=== PATIENT | male | born 1965 | race Caucasian/White ===

== ENCOUNTER 2018-04-30 09:28 | Inpatient (IN) ==
[2018-04-30] MEDS ORDERED: NS 1,000 ML IV ONE ×2 (09:40→10:47)
[2018-04-30] MEDS: SALINE FLUSH 10ml SYRINGE IVF PRN (10:00)
[2018-04-30] MEDS: CLINDAMYCIN PB 600 MG/50 ML BAG IV SCH (10:04)
--- NOTE | 2018-04-30 10:33 | XRay Report ---
Indication: Foot infx PROCEDURE: XR foot LT min 3V: Encounter: Initial Comparison: None Findings: There is no acute fracture, dislocation or malalignment identified. Midfoot soft tissue swelling. Mild midfoot degenerative change and evidence of old trauma or infection in the metatarsal bases. Impression: No acute osseous abnormality. .
--- NOTE | 2018-04-30 11:08 | Emergency Department Report ---
General Adult HPI - General Chief complaint: Wound/Laceration Stated complaint: lac between toe, infected Time Seen by Provider: 04/30/18 09:37 Source: patient Mode of arrival: ambulatory Limitations: no limitations - History of Present Illness HPI narrative: Pt presents with a laceration/wound between the last 2 toes of his left foot. Pt thinks it may have been there about 5 days. He reports he ripped what he thought was a callous off the bottom of his foot near the same area which has now turned to an ulceration. He does have pain depending on which way he turns or if he bumps his foot. He has had sweats but unknown fever. Onset (ago): day(s) Location: lower extremity Treatments prior to arrival: none - Related Data Home Medications Medication Instructions Recorded Confirmed Aspirin [Adult Aspirin Regimen] 81 mg PO DAILY 04/30/18 04/30/18 Cholecalciferol (Vitamin D3) 1 tab PO DAILY 04/30/18 04/30/18 [Vitamin D3] Allergies Allergy/AdvReac Type Severity Reaction Status Date / Time No Known Allergies Allergy Verified 04/30/18 09:47 Review of Systems All systems: reviewed and negative except as stated Constitutional: Reports: as per HPI Musculoskeletal: Reports: as per HPI Integumentary: Reports: as per HPI [facility] Patient Stated Medical History Migraine Yes Macular Degeneration Yes: "THE START OF" Hypertension Yes Diabetes Mellitus Type 2 Yes Other GI Yes: ALTERNATING CONSTIPATION AND DIARRHEA--- SUSPECTS IBS BUT NO DX Osteoarthritis Yes MRSA Yes - Social History Smoking status: Never smoker Physical Exam - Limitations Limitations: no limitations - General General appearance: alert, in no apparent distress - Normal Exams: Head:: Normocephalic without trauma Eyes:: Pupils are PERRLA w/ EOMI Chest/Respirations:: Clear all mustafa, with good airflow, and symmetry bilaterally Cardiovascular:: Regular rate and rhythm, without murmur or gallop, Pulses 2+ all extremities, capillary refill, <2 seconds all extremities Abdomen:: Bowel sounds positive, soft, non-tender, non-distended Neurological:: Patient is alert, and oriented, cranial nerves, motor/sensory/ cerebellar, exams w/o gross deficits, to observation Psychiatric:: Patient exhibits, appropriate attention, emotion and affect - Expanded Lower Extremity Exam left Foot/toe exam: Present: full ROM, tenderness, swelling, erythema (ulceration to bottom of foot) - Skin Skin exam: Present: warm, dry Course Vital Signs Temperature 98.3 F 04/30/18 09:32 Pulse Rate 106 H 04/30/18 09:32 Respiratory Rate 22 04/30/18 09:32 Blood Pressure 177/86 H 04/30/18 09:32 Pulse Oximetry 97 04/30/18 09:32 Temperature 98.3 F 04/30/18 09:32 Pulse Rate 106 H 04/30/18 09:32 Respiratory Rate 22 04/30/18 09:32 Blood Pressure 177/86 H 04/30/18 09:32 Pulse Oximetry 97 04/30/18 09:32 Medical Decision Making - MDM Narrative Medical decision making narrative: With further discussion pt reveals he has not had any medications for about a year and a half. He does not have a PCP. Pt has received Clindamycin. CT foot performed for osteomyelitis. Hospitalist notified and will admit. Pt informed of plan. - Differential Diagnosis cellulitis, diabetic neuropathy, hyperglycemia, ulcerated wound - Lab Data Lab results reviewed: Yes: I reviewed the patient's lab results. Result diagrams: 04/30/18 10:05 04/30/18 10:05 Lab Results 04/30/18 04/30/18 04/30/18 Range/Units 10:05 10:05 11:00 WBC 16.8 H (4.5-11.0) T/MM3 RBC 4.84 (4.50-5.90) M/MM3 Hgb 13.2 L (13.5-17.5) GM/DL Hct 37.9 L (41-53) % MCV 78.3 L (80-100) UM3 MCH 27.3 (26-34) UUG MCHC 34.8 (31-37) GM/DL RDW Std Deviation 35.7 L (36.9-50.2) FL Plt Count 247 (130-400) T/MM3 MPV 9.4 (9.4-12.4) UM3 Immature Gran % (Auto) Not performed Neut % (Auto) Not performed Lymph % (Auto) Not performed [place] % (Auto) Not performed Eos % (Auto) Not performed Baso % (Auto) Not performed Neut # (Auto) Not performed Lymph # (Auto) Not performed [place] # (Auto) Not performed Eos # (Auto) Not performed Baso # (Auto) Not performed Abs Immat Gran (auto) Not performed Neutrophils % (Manual) 77.0 H (33-66) % Band Neutrophils % 2.0 (0-6) % Lymphocytes % (Manual) 15.0 L (23-45) % Monocytes % (Manual) 6.0 (0-9.0) % Neutrophils # (Manual) 12.9 H (1.8-7.7) T/MM3 Band Neutrophils # 0.3 T/MM3 Lymphocytes # (Manual) 2.5 (1-4.8) T/MM3 Monocytes # (Manual) 1.0 H (0-0.8) T/MM3 RBC Morph Comment Normal Turbidity < 20 (0-20) Sodium 131 L (136-146) MEQ/L Potassium 4.0 (3.6-5) MEQ/L Chloride 92 L (98-107) MEQ/L Carbon Dioxide 26 (22-30) MEQ/L Anion Gap 13 (5-15) meq/L BUN 12.0 (9-20) MG/DL Creatinine 0.7 L (0.8-1.5) mg/dL GFR Calculation 118 BUN/Creatinine Ratio 17 (6-26) RATIO Glucose 380 H (75-110) MG/DL Glucometer 361 (65-110) mg/dL Calculated Osmolality 269 (261-280) MOSM/KG Calcium 8.8 (8.4-10.2) MG/DL Icterus Index < 2 (0-7) C-Reactive Protein 147.2 H (0-9) mg/L Specimen Hemolysis < 15 (0-25) Disposition Clinical Impression: Hyperglycemia Cellulitis Qualifiers: Site of cellulitis: extremity Site of cellulitis of extremity: lower extremity Laterality: left Qualified Code(s): L03.116 - Cellulitis of left lower limb [place] [facility] [place] Condition: Stable Prescriptions: No Action Aspirin [Adult Aspirin Regimen] 81 mg PO DAILY Referrals: Primary Care,You Choose [Primary Care Provider] - Time of Disposition: 11:25 - Seen By: midlevel
[2018-04-30 12:02] VITALS: BMI 41.4
[2018-04-30] MEDS ORDERED: ONDANSETRON 4 MG/2 ML INJECTION IVP PRN (12:49)
[2018-04-30] MEDS ORDERED: SENNA + DOCUSATE TABLET PO PRN (12:49)
[2018-04-30] MEDS ORDERED: ACETAMINOPHEN 325 MG TABLET PO PRN (12:49)
[2018-04-30] MEDS ORDERED: VANCOMYCIN - PHARMACY CONSULT MC ONE (13:06)
--- NOTE | 2018-04-30 14:18 | Pharmacy Consult-Antibiotics ---
Pharmacy Consult-Vancomycin - Laboratory Information WBC 16.8 T/MM3 (4.5-11.0) H 04/30/18 10:05 BUN 12.0 MG/DL (9-20) 04/30/18 10:05 Creatinine 0.7 mg/dL (0.8-1.5) L 04/30/18 10:05 Procalcitonin 0.08 NG/ML 04/30/18 11:41 VANCOMYCIN THERAPY: New start Pt with cellulitis between last two toes, left foot. Hx of T2DM, MRSA Renal fx stable on admission. Will start Vancomycin 2000mg IV q8hrs, with first dose now. Target trough levels = 15 - 20 mcg/ml. Will check levels tomorrow with third dose. Thank you.
[2018-04-30] MEDS: CEFEPIME 2 GM in NS 100 ML IV SCH (14:25)
--- NOTE | 2018-04-30 14:55 | History & Physical Report ---
History of Present Illness Date: 04/30/18 Chief complaint: sepsis, left foot cellulitis, diabetic foot ulceration HPI: Phil Dawkins is a 52-year-old male who [place] [facility] [place], 04/30/18, for evaluation of swelling and erythema to his left foot. He has a known history of uncontrolled diabetes type II, peripheral diabetic neuropathy and uncontrolled hypertension as he has not taken his medications since 2016. He has previously been seen and treated by Dr. Narinder Gamble but does not currently have a primary physician. He reports that on 04/24/18 he began having itching and burning to the bottom of his left foot and felt that it was due to dry skin so he lathered his feet with lotion and put on clean socks. On 04/25/18 he began noticing increased swelling with very mild erythema to his left foot along the lateral aspect and between his 4th and 5th toes. At that time, he also noticed some skin that appeared to be sloughing off so he pulled it off and noticed the underlying skin was more yellow than pink like normal. He denies any discharge or bleeding at that time. Over the next few days, the swelling and erythema progressively got worse despite constant elevation at home. He also had subjective fevers with profuse sweating. This morning he reports that he began to "panic" that something was wrong and presented to [facility]. Upon arrival to the ED, he was noted to be afebrile with tachycardia (HR 106), tachypnea (RR 22) and elevated blood pressure (177/86). Labs were obtained and revealed leukocytosis (WBC 16.8) with 2% bands, mild anemia (Hgb 13.2), hyponatremia (Na 131) and hyperglycemia (Glu 380). CRP was elevated at 147.2. Lactate was 1.1 and procalcitonin was 0.08. A1c was elevated at 12.4. Left foot x-ray was obtained and revealed no acute osseous abnormalities. CT foot was also obtained in ED and revealed 1st digit soft-tissue swelling, no foreign body identified and no acute bony injury noted. Based on clinical exam in conjunction with his uncontrolled diabetes and hypertension as well as concern for sepsis as indicated by his leukocytosis, tachycardia and tachypnea with concerns of osteomyelitis, Dr. Amaya was consulted and Phil was admitted into inpatient status for further evaluation, correction of his uncontrolled diabetes, wound and orthopedic evaluation and IV antibiotics. His length of stay is expected to exceed more than 2 over nights. Review of Systems All systems PM: 10-point ROS was reviewed, no additional remarkable complaints except - Constitutional Constitutional: Present: fever(s) (subjective). Absent: chills, fatigue, headache(s), lethargy, malaise, night sweats, weakness Comments: Sweating - EENMT Eyes: Absent: change in vision, loss of vision, photophobia Ears: Absent: ear pain Balance: Absent: falling to one side Nose: Absent: nosebleeds Mouth/Throat: Present: dry mouth. Absent: sore throat, changes in swallowing - Cardiovascular Cardiovascular: Present: edema. Absent: chest pain, palpitations, syncope, dyspnea on exertion, orthopnea Rhythm: Present: regular rhythm Vascular: Absent: pallor of an extermity, pedal edema, unilateral swelling - Respiratory Respiratory: Absent: cough, dyspnea, hemoptysis, dyspnea on exertion, wheezing, pain on inspiration, chest congestion - Gastrointestinal Gastrointestinal: Absent: abdominal pain, constipation, diarrhea, hematochezia, melena, nausea, vomiting - Genitourinary Genitourinary: Absent: dysuria, flank pain, hematuria - Musculoskeletal Musculoskeletal: Absent: back pain, deformity, limited range of motion, muscle weakness Musculoskeletal Comments: Pain, swelling and erythema with plantar ulceration to left foot. - Integumentary/Breasts Integumentary: Present: erythema (left foot), non-healing lesions (left foot), swelling (left foot), wounds. Absent: rash - Neurological Neurological: Present: sensory deficit (chronic lower extremity peripheral neuropathy). Absent: confusion, dizziness, focal weakness, weakness - Psychiatric Psychiatric: Present: anxiety, depression - Endocrine Endocrine: Absent: flushing, palpitations, polydipsia - Hematologic/Lymphatic Hematologic/Lymphatic: Absent: easy bruising - Allergic/Immunologic Allergic/Immunologic: Absent: seasonal rhinorrhea Past Medical History Medical History Updates: Diabetes mellitus, type II, uncontrolled. Hypertension , uncontrolled. Medication noncompliance. Peripheral neuropathy. Obesity - BMI 41.5. Sleep apnea with home CPAP. Surgical History: Right index finger surgical abscess drainage - 2014 at [place]. Left middle finger surgical abscess drainage - 2014 at [place]. Family History: Mother - living, age 75, COPD. Father - living, age 76, CHF. 2 sisters, both living and reportedly healthy. Family History: As Above - Social History Smoking status: Never smoker Substance use type: does not use Alcohol intake frequency: holidays/special occasions only Housing: house Household members: none Current occupational status: employed ([employer]) Does patient use chewing tobacco?: Yes (last use 04/30/18.) Current residence: Apartment/Private Home Social history: Patient denies having a current PCP and admits to not being complaint with medications since 2015. Has previously seen Dr. Narinder Gamble, endocrine. Medications Home Medications Medication Instructions Recorded Confirmed Type Aspirin [Adult Aspirin Regimen] 81 mg PO DAILY 04/30/18 04/30/18 History Cholecalciferol (Vitamin D3) 1 tab PO DAILY 04/30/18 04/30/18 History [Vitamin D3] Insulin Detemir [Levemir] 56 unit SQ HS 04/30/18 04/30/18 History Insulin Lispro [Humalog] 15 unit SQ TIDWM 04/30/18 04/30/18 History Metformin [Glucophage] 1 tab PO BIDWM 04/30/18 04/30/18 History Mucinex 400 mg Q4H PRN 04/30/18 04/30/18 History Allergies Allergy/AdvReac Type Severity Reaction Status Date / Time No Known Allergies Allergy Verified 04/30/18 09:47 Exam Vital Signs: Temperature 99.6 F 04/30/18 11:50 Pulse Rate 97 04/30/18 11:50 Respiratory Rate 20 04/30/18 11:50 Blood Pressure 149/88 H 04/30/18 11:50 Pulse Oximetry 97 04/30/18 11:50 Height/Weight/BMI: Height 5 ft 8 in Weight 272 lb 11.389 oz Body Mass Index 41.4 Comments: Patient is seen while resting in bed, watching TV. Very sarcastic on exam. - Constitutional Present: no acute distress, well nourished, well developed, morbidly obese, cooperative Comments: Non-toxic appearing. - Routine HEENT Exam Head: Present: normocephalic, atraumatic Eye: Present: PERRL. Absent: conjunctival icterus ENT: Present: mucous membranes moist, oropharynx clear - Routine Neck Exam Present: supple, full ROM, trachea midline - Routine Chest/Breast/Axilla Exam Chest wall: Absent: pacemaker - Routine Respiratory Exam Present: CTA bilaterally. Absent: respiratory distress, wheezes - Routine Cardiovascular Exam Present: RRR, S1, S2, no murmur - Routine Abdominal Exam Present: soft, normoactive bowel sounds, non tender Comments: Morbidly obese. - Routine Extremities Exam Present: edema (trace to 1+ bilaterally.), full ROM, pulses intact (3+ bilaterally), normal capillary refill. Absent: calf tenderness - Detailed Lower Extremity Exam Foot/Toes: Left erythema (lateral and dorsal left foot), Left swelling (left foot), Left tenderness (left dorsal foot over 4th and 5th toes), Left wound ( left plantar surface, between 4th and 5th toes), Bilateral full ROM Top foot image: 1 - Swelling, erythema and tenderness Bottom foot image: 1 - Decubitus ulceration - Routine Back/Spine/Pelvis Exam Back/Spine: Present: full ROM. Absent: vertebral tenderness - Routine Skin Exam Present: dry, warm Comments: Afebrile. Increased swelling and erythema to dorsal left foot; large decubitus ulceration to plantar surface of left foot at base of 3rd, 4th and 5th toes with skin break down between 4th and 5th toes. - Routine Neurological Exam Present: alert, oriented X3, sensory deficit (decreased sensation to dorsal and plantar feet bilaterally.), moving all extremities, hearing grossly intact, normal speech - Routine Psychiatric Exam Present: cooperative Comments: Very sarcastic and at times, difficult, refusing to answer some questions. Results - Labs CBC & Chem 7: 04/30/18 10:05 04/30/18 15:56 Microbiology Results: Microbiology 04/30/18 11:41 Peripheral/Iv Start Blood Culture - Preliminary Culture Initiated - Results Pending 04/30/18 11:40 Peripheral/Iv Start Blood Culture - Preliminary Culture Initiated - Results Pending Assessment and Plan Assessment and Plan: Assessment: Sepsis secondary to cellulitis of the left foot as indicated by tachycardia, tachypnea, leukocytosis. Cellulitis, rule out osteomyelitis, left foot. Diabetic foot decubitus ulceration. Diabetes mellitus, type II, uncontrolled with acute hyperglycemia - A1c 12.4. Anemia, mild, present on admission (Hgb 13.2). Hyponatremia, present on admission (Na 131). Hypomagnesium, present on admission (Mg 1.5). Hypertension, uncontrolled. Medication noncompliance. Peripheral neuropathy. Obesity - BMI 41.5. Sleep apnea with home CPAP. Plan - 04/30/18: Admit patient to inpatient status under the care of Dr. Amaya and the hospitalist service. Patient given Clindamycin 600mg IV x 1 dose in ED. Unfortunately blood cultures were not obtained prior to giving the antibiotics. Monitor blood culture results. Will initiate Vancomycin per pharmacy as well as cefepime 2g IV Q12 hours for empiric coverage of suspected pathogens. Obtain MRI left foot in AM to assess for osteomyelitis. CRP elevated at 147.[address] Leyva, [facility], for further evaluation and wound care recommendations. Initial lactate was 1.1. Will monitor serial lactates. Procalcitonin 0.08. Patient given NS x 2L in ED prior to admission due to hyperglycemia with slight improvement in blood sugars. Will continue NS 100cc/hr for hydration and electrolyte correction. Hyponatremia noted on admission (Na 131). Will recheck CMP at 1600 to monitor electrolytes and rate of correction. Patient admits to being noncompliant with medications. Last known medication list per [facility] was: * Lisinopril 5mg PO daily. * Humalog 12 units WM. * Levemir 54 units QHS * Metformin 1000mg po BID. Initiate lisinopril 5mg daily now. Monitor blood pressure closely as well as renal function. Initiate Humalog 8 units with meals and Levemir 30 units QHS. Monitor blood sugars closely. SSI available as indicated. Consider restarting metformin if tolerating insulin and blood sugars remain elevated. Monitor closely on telemetry. Monitor closely for signs of hypoglycemia and hypotension given initiation of medications. Diabetic diet at 2000 kcal and will consult quirk sander. Recheck labs in AM to monitor blood counts, electrolytes and renal function. Upon discharge, patient will need to establish care with a primary provider. Importance of medication compliance was discussed at length with the patient DVT Prophylaxis: SCD's Resuscitation Status: Full Code - Time spent with patient Time with patient PN: 70 minutes - Physician Narrative Physician: Francesco Amaya MD, other (Dr. Amaya.) Narrative: Date: 04/30/18 Time: 1740 I have independently evaluated and examined this patient. I reviewed the chart, the patient's history, and the CONDUCTOR AND ENGINEER/PA's documented findings as above. We discussed and formulated the assessment and plan as above with additions as below: 52 yo with uncontrolled diabetes noticed some irritation to the bottom of his left foot last Tuesday night or Tuesday morning. He says the top of his foot looked red but seemed to get better. He reports subjective fevers in the past few days. Today there is more swelling and redness. He came to the ER. NAD. CTAB. RRR. obese, nontender, +bs. 1+ edema LLE. He has swelling and erythema to dorsal aspect. Wound is present on the plantar aspect near the base of the 4th and 5th toes. Some bleeding was noted. Patient admitted and abx initiated. Blood cx drawn. Lactate wnl x 2. Will need wound care. Ortho to be consulted. Plan on MRI to eval for osteomyelitis. Starting basal/bolus regimen with correction dosing. Restarting lisinopril. Would benefit from daily ASA. Hospital Course Summary Disclaimer: The visit summary below is not to be considered part of the above Progress Note. Hospital Course: Plan - 04/30/18: Admit patient to inpatient status under the care of Dr. Amaya and the hospitalist service. Patient given Clindamycin 600mg IV x 1 dose in ED. Unfortunately blood cultures were not obtained prior to giving the antibiotics. Monitor blood culture results. Will initiate Vancomycin per pharmacy as well as cefepime 2g IV Q12 hours for empiric coverage of suspected pathogens. Obtain MRI left foot in AM to assess for osteomyelitis. CRP elevated at 147.[address] Leyva, ortho, for further evaluation and wound care recommendations. Initial lactate was 1.1. Will monitor serial lactates. Procalcitonin 0.08. Patient given NS x 2L in ED prior to admission due to hyperglycemia with slight improvement in blood sugars. Will continue NS 100cc/hr for hydration and electrolyte correction. Hyponatremia noted on admission (Na 131). Will recheck CMP at 1600 to monitor electrolytes and rate of correction. Patient admits to being noncompliant with medications. Last known medication list per [facility] was: * Lisinopril 5mg PO daily. * Humalog 12 units WM. * Levemir 54 units QHS * Metformin 1000mg po BID. Initiate lisinopril 5mg daily now. Monitor blood pressure closely as well as renal function. Initiate Humalog 8 units with meals and Levemir 30 units QHS. Monitor blood sugars closely. SSI available as indicated. Consider restarting metformin if tolerating insulin and blood sugars remain elevated. Monitor closely on telemetry. Monitor closely for signs of hypoglycemia and hypotension given initiation of medications. Diabetic diet at 2000 kcal and will consult quirk sander. Recheck labs in AM to monitor blood counts, electrolytes and renal function. Upon discharge, patient will need to establish care with a primary provider. Importance of medication compliance was discussed at length with the patient
[2018-04-30] MEDS: NS 1,000 ML IV SCH (15:06)
[2018-04-30] MEDS ORDERED: GLUCOSE ORAL GEL 40% 37.5gm PO PRN (15:16)
[2018-04-30] MEDS ORDERED: LISINOPRIL 10 MG TABLET PO SCH (15:30)
[2018-04-30] MEDS ORDERED: INSULIN ASPART 100unit/ml INJECTION SQ ONE (15:45)
[2018-04-30] MEDS ORDERED: MAGNESIUM OXIDE 400 MG TABLET PO ONE (17:30)
[2018-04-30] MEDS: LISINOPRIL 5 MG TABLET PO SCH (18:25)
[2018-04-30] MEDS: INSULIN ASPART 100unit/ml INJECTION SQ SCH (18:26)
[2018-04-30] MEDS: INSULIN ASPART 100unit/ml INJECTION SQ PRN (18:26)
[2018-04-30] MEDS: INSULIN DETEMIR 100unit/ml INJECTION SQ SCH (21:52)
[2018-05-01] MEDS: CEFEPIME 2 GM in NS 100 ML IV SCH ×2 (02:00→14:08)
[2018-05-01] MEDS: NS 1,000 ML IV SCH ×2 (03:50→12:10)
--- NOTE | 2018-05-01 08:15 | CT Scan Report ---
Indication: diabetic laceration PROCEDURE: CT foot LT wo con: Encounter: Initial Comparison: None Technique: Axial CT images were performed through the left foot without intravenous contrast. Coronal and sagittal two-dimensional reformats. Automated Exposure Control and Iterative Reconstruction dose reducing techniques were utilized. Findings: No acute fracture identified. Degenerative changes in the midfoot. No dislocation. Mild degenerative change in the tibiotalar joint. Calcaneal spurring. No fluid collection or abscess identified. Diffuse subcutaneous edema. Mild muscular atrophy. Evidence of old trauma to the distal fibula and mid foot region with changes in the third and fourth metatarsal bases. No radiopaque foreign body seen. Impression: No acute osseous abnormality. There is a preliminary report by [employer]. .
[2018-05-01] MEDS: INSULIN ASPART 100unit/ml INJECTION SQ SCH ×3 (09:11→17:59)
[2018-05-01] MEDS: LISINOPRIL 5 MG TABLET PO SCH (09:11)
[2018-05-01] MEDS: POLYETHYL GLYCOL 3350 17gm PACKET PO SCH (09:13)
[2018-05-01] MEDS ORDERED: SALINE FLUSH 10ml SYRINGE ONE (11:36)
[2018-05-01] MEDS ORDERED: GADOTERIDOL 279.3mg/ml - 5ml vial IVP ONE (11:36)
[2018-05-01] MEDS ORDERED: SALINE 0.65% NASAL SPRAY 44 ML BOTTLE EA NOSTRIL PRN (11:39)
[2018-05-01] MEDS: CLINDAMYCIN PB 600 MG/50 ML BAG IV SCH (12:17)
--- NOTE | 2018-05-01 12:17 | Pharmacy Consult-Antibiotics ---
Pharmacy Consult-Vancomycin - Laboratory Information WBC 14.9 T/MM3 (4.5-11.0) H 05/01/18 04:32 BUN 12.0 MG/DL (9-20) 05/01/18 04:32 Creatinine 0.7 mg/dL (0.8-1.5) L 05/01/18 04:32 Procalcitonin 0.08 NG/ML 04/30/18 11:41 Vancomycin Trough 18.63 ug/mL (15-20) 05/01/18 08:31 - Consult Information Vancomycin Consult: Day 2 ER is a 52 yo patient with cellulitis between last two toes, left foot. He has a history of T2DM, MRSA. The renal function was stable on admission. Vancomycin 2000mg IV q8hrs, with first dose stat, was started on admission. The Target trough levels is between 15 - 20 mcg/ml. Upon checking the Vancomycin trough this am (18.65 mcg/mL), I decided to change the Vancomycin to 2,000 mg iv every 12 hours (0900/2100) with a vancomycin trough before the 0900 dose on 05/03. Thanks, Serg Cho, Pharmacist.
--- NOTE | 2018-05-01 12:23 | Magnetic Resonance Report ---
Indication: cellulitis, possible osteomyelitis left foot PROCEDURE: MR foot LT wo/w con: Encounter: Initial Comparison: Left foot CT dated April 30, 2018 Technique: Multiplanar multisequence MR imaging of the left foot was performed with and without contrast. Contrast: 24 mL ProHance Findings: No acute fracture identified. There is diffuse intramuscular edema within the foot, a common finding in diabetics. The flexor and extensor tendons are grossly intact. No fluid collections appreciated. There is soft tissue induration underlying the fourth metatarsal head. There is no focal bone marrow edema overlying this area however. Bone marrow signal intensity is normal. Chronic appearing cortical thickening in the fourth metatarsal shaft as seen on the prior radiographs and CT. Dorsal subcutaneous edema. No areas of concerning bone marrow enhancement. No rim-enhancing abscess appreciated. Impression: No MR evidence of osteomyelitis. .
--- NOTE | 2018-05-01 12:52 | Orthopedic Consult Note ---
Orthopedic Consultation HPI - Consultation Info Consult Date: 05/01/18 Attending Physician: Baljeet Mauricio MD - History of Present Illness 52 year old male with hx of DM without history of previous foot ulcer presented to the ER after a one week hx of increasing swelling, redness, and "blister" under his 4th toe on the left. Admitted and started on IV abx. Previous treatment with elevation and lotion. No other symptoms. History of neuropathy. Review of Systems - Constitutional Constitutional: Absent: chills, fever(s), night sweats - Cardiovascular Cardiovascular: Absent: chest pain, palpitations - Respiratory Respiratory: Absent: cough, dyspnea - Gastrointestinal Gastrointestinal: Absent: abdominal pain, nausea, vomiting - Musculoskeletal Musculoskeletal: Present: as per HPI - Integumentary/Breasts Integumentary: Absent: lesions, rash - Neurological Neurological: Absent: numbness, tingling PFSH Patient Stated Medical History Migraine Yes: "Tension headaches" Hearing Loss Yes: "Deaf in left ear" Macular Degeneration Yes: "THE START OF" Hypertension Yes Diabetes Mellitus Type 2 Yes Other GI Yes: ALTERNATING CONSTIPATION AND DIARRHEA--- SUSPECTS IBS BUT NO DX Osteoarthritis Yes MRSA Yes: Finger Medical History Updates: Diabetes mellitus, type II, uncontrolled. Hypertension , uncontrolled. Medication noncompliance. Peripheral neuropathy. Obesity - BMI 41.5. Sleep apnea with home CPAP. Surgical History: Right index finger surgical abscess drainage - 2013 at [place]. Left middle finger surgical abscess drainage - 2013 at [place]. - Social History Smoking status: Never smoker Substance use type: does not use Alcohol intake frequency: holidays/special occasions only Housing: house Household members: none Current occupational status: employed ([employer]) Does patient use chewing tobacco?: Yes (last use 04/30/18.) Current residence: Apartment/Private Home Medications Home Medications Medication Instructions Recorded Confirmed Type Aspirin [Adult Aspirin Regimen] 81 mg PO DAILY 04/30/18 04/30/18 History Cholecalciferol (Vitamin D3) 1 tab PO DAILY 04/30/18 04/30/18 History [Vitamin D3] Insulin Detemir [Levemir] 56 unit SQ HS 04/30/18 04/30/18 History Insulin Lispro [Humalog] 15 unit SQ TIDWM 04/30/18 04/30/18 History Metformin [Glucophage] 1 tab PO BIDWM 04/30/18 04/30/18 History Mucinex 400 mg Q4H PRN 04/30/18 04/30/18 History Allergies Allergy/AdvReac Type Severity Reaction Status Date / Time No Known Allergies Allergy Verified 04/30/18 09:47 Exam - Constitutional Vital Signs: Temperature 97.8 F 05/01/18 07:00 Pulse Rate 92 05/01/18 07:00 Respiratory Rate 17 05/01/18 07:00 Blood Pressure 144/72 H 05/01/18 07:00 Pulse Oximetry 95 05/01/18 07:00 General: cooperative, healthy appearing, no acute distress, well developed, well groomed Nutritional Appearance: well nourished Orientation: alert - Psych Mood: normal Affect: normal Attitude: cooperative - RLE Skin: no rashes or lesions noted - LLE Left Lower Extremity Comments: Grade one DFU measuring 4.2 cm x 1.2 cm starts between 4th and 5th digits and extends toward heel for 4 cm. Skin edges macerated. Good DP pulse. Swelling and erythema dorsum of foot. - Wound L PLANTAR FOOT BETWEEN FOURTH AND FIFTH TOES Wound Drainage Amount: None Wound Drainage Odor: No Odor - Labs Result Diagrams: 05/01/18 04:32 05/01/18 04:32 Abnormal lab results 04/30/18 04/30/18 05/01/18 Range/Units 11:37 15:56 04:32 WBC 14.9 H (4.5-11.0) T/MM3 Hgb 12.6 L (13.5-17.5) GM/DL Hct 36.2 L (41-53) % MCV 79.7 L (80-100) UM3 Immature Gran % (Auto) 0.7 H (0.0-0.5) % Neut % (Auto) 72.7 H (33-66) % Lymph % (Auto) 18.0 L (23-45) % Neut # (Auto) 10.8 H (1.8-7.7) T/MM3 [place] # (Auto) 1.0 H (0-0.8) T/MM3 Abs Immat Gran (auto) 0.10 H (0.00-0.03) T/MM3 Sodium 134 L (136-146) MEQ/L Creatinine 0.7 L (0.8-1.5) mg/dL Glucose 371 H (75-110) MG/DL Hemoglobin A1c 12.4 H (4.0-5.7) % Calcium 8.3 L (8.4-10.2) MG/DL Magnesium 1.5 L (1.6-2.3) MG/DL 05/01/18 Range/Units 04:32 WBC (4.5-11.0) T/MM3 Hgb (13.5-17.5) GM/DL Hct (41-53) % MCV (80-100) UM3 Immature Gran % (Auto) (0.0-0.5) % Neut % (Auto) (33-66) % Lymph % (Auto) (23-45) % Neut # (Auto) (1.8-7.7) T/MM3 [place] # (Auto) (0-0.8) T/MM3 Abs Immat Gran (auto) (0.00-0.03) T/MM3 Sodium (136-146) MEQ/L Creatinine 0.7 L (0.8-1.5) mg/dL Glucose 215 H (75-110) MG/DL Hemoglobin A1c (4.0-5.7) % Calcium (8.4-10.2) MG/DL Magnesium (1.6-2.3) MG/DL H & H 05/01/18 Range/Units 04:32 Hgb 12.6 L (13.5-17.5) GM/DL Hct 36.2 L (41-53) % - Diagnostic results Other Results: other (MRI does not show osteomyelitis or abcess. Foot films negative. CT of foot negative.) Impression and Recommendation (1) Ulcer of left foot due to type 2 diabetes mellitus Current visit: Yes Status: Acute I reviewed his exam and MRI findings. I recommended sharp debridement of necrotic tissue with dressing with hydrofera blue to help keep ulcer clean and manage drainage. Will reassess ulcer tomorrow or at follow up as outpatient in the wound clinic. Hospital Course Summary Disclaimer: The visit summary below is not to be considered part of the above Progress Note. Hospital Course: Plan - 04/30/18: Admit patient to inpatient status under the care of Dr. Amaya and the hospitalist service. Patient given Clindamycin 600mg IV x 1 dose in ED. Unfortunately blood cultures were not obtained prior to giving the antibiotics. Monitor blood culture results. Will initiate Vancomycin per pharmacy as well as cefepime 2g IV Q12 hours for empiric coverage of suspected pathogens. Obtain MRI left foot in AM to assess for osteomyelitis. CRP elevated at 147.[address] Leyva, ortho, for further evaluation and wound care recommendations. Initial lactate was 1.1. Will monitor serial lactates. Procalcitonin 0.08. Patient given NS x 2L in ED prior to admission due to hyperglycemia with slight improvement in blood sugars. Will continue NS 100cc/hr for hydration and electrolyte correction. Hyponatremia noted on admission (Na 131). Will recheck CMP at 1600 to monitor electrolytes and rate of correction. Patient admits to being noncompliant with medications. Last known medication list per [facility] was: * Lisinopril 5mg PO daily. * Humalog 12 units WM. * Levemir 54 units QHS * Metformin 1000mg po BID. Initiate lisinopril 5mg daily now. Monitor blood pressure closely as well as renal function. Initiate Humalog 8 units with meals and Levemir 30 units QHS. Monitor blood sugars closely. SSI available as indicated. Consider restarting metformin if tolerating insulin and blood sugars remain elevated. Monitor closely on telemetry. Monitor closely for signs of hypoglycemia and hypotension given initiation of medications. Diabetic diet at 2000 kcal and will consult dextrine mixer. Recheck labs in AM to monitor blood counts, electrolytes and renal function. Upon discharge, patient will need to establish care with a primary provider. Importance of medication compliance was discussed at length with the patient
[2018-05-01] MEDS ORDERED: BISACODYL 10 MG SUPPOSITORY RECTALLY PRN (13:03)
[2018-05-01] MEDS: INSULIN ASPART 100unit/ml INJECTION SQ PRN ×3 (13:06→20:51)
--- NOTE | 2018-05-01 14:15 | Progress Note ---
- Date 05/01/18 Subjective: F/U: Sepsis secondary to cellulitis of the left foot, Cellulitis left foot, Diabetic foot ulceration. Doing okay overall. Notes some f/c, but not having sweats like as home. Some discomfort to foot but able to ambulate. Trying to elevate his left foot when at rest. Eating well-no ab pain or nausea. Breathing well. No chest pain. Objective Vital signs: Temperature 97.8 F 05/01/18 07:00 Pulse Rate 92 05/01/18 07:00 Respiratory Rate 17 05/01/18 07:00 Blood Pressure 144/72 H 05/01/18 07:00 Pulse Oximetry 95 05/01/18 07:00 Height/Weight/BMI: Height 1.73 m Weight 125.2 kg Body Mass Index 41.4 - Constitutional Present: well nourished, well developed, average body habitus, obese, cooperative - Routine HEENT Exam Head: Present: normocephalic, atraumatic Eye: Present: EOMI, PERRL, normal accommodation ENT: Present: mucous membranes moist - Routine Respiratory Exam Present: CTA bilaterally. Absent: rales, respiratory distress, rhonchi, stridor , wheezes - Routine Cardiovascular Exam Present: RRR, no murmur - Routine Abdominal Exam Present: soft, normoactive bowel sounds, non distended, non tender. Absent: guarding - Routine Extremities Exam Present: edema (Trace bilaterally). Absent: cyanosis, clubbing - Routine Musculoskeletal Exam Musculoskeletal: Present: no clubbing or cyanosis - Routine Skin Exam Present: dry, warm - Routine Neurological Exam Present: alert, oriented X3, CN II-XII intact, moving all extremities, vision grossly intact, hearing grossly intact, normal speech. Absent: motor deficit, altered mental status - Routine Psychiatric Exam Present: normal affect, normal thought process, cooperative Results - Labs CBC & Chem 7: 05/01/18 04:32 05/01/18 04:32 Microbiology Results: Microbiology 04/30/18 11:41 Peripheral/Iv Start Blood Culture - Preliminary No Growth After 1 Day 04/30/18 11:40 Peripheral/Iv Start Blood Culture - Preliminary No Growth After 1 Day Assessment and Plan Assessment and Plan: Assessment: Sepsis secondary to cellulitis of the left foot as indicated by tachycardia, tachypnea, leukocytosis. Cellulitis left foot. Diabetic foot decubitus ulceration MRI without evidence of osteomyelitis Diabetes mellitus, type II, uncontrolled with acute hyperglycemia - A1c 12.4 Anemia, mild, (POA) - Hgb 13.2 Hyponatremia (POA) - Na 131 Hypomagnesium (POA) - Mg 1.5 Hypertension, uncontrolled. Medication noncompliance Peripheral neuropathy Morbid Obesity - BMI 41.5 Sleep apnea with home CPAP Plan Continue cefepime and vancomycin for antimicrobial coverage. Wound debridement preformed today by Dr Leyva. MRI without evidence of osteomyelitis. Can discontinue IVF as oral drive doing well. Continue with Levemir and Humalog for glycemic control - monitor sugars. Will recheck CBC in am due to resolving sepsis. Recheck BMP and Mg in am due to medication use. Case discussed with CM. Time spend with patient care 25 minutes. DVT Prophylaxis: SCD's Resuscitation Status: Full Code - Time spent with patient Time with patient PN: 25 minutes - Physician Narrative Physician: Baljeet Mauricio MD Narrative: Date: 05/01/18 Time: 1412 Hospital Course Summary Disclaimer: The visit summary below is not to be considered part of the above Progress Note. Hospital Course: 04/30/18 Admit patient to inpatient status under the care of Dr. Amaya and the hospitalist service. Patient given Clindamycin 600mg IV x 1 dose in ED. Unfortunately blood cultures were not obtained prior to giving the antibiotics. Monitor blood culture results. Will initiate Vancomycin per pharmacy as well as cefepime 2g IV Q12 hours for empiric coverage of suspected pathogens. Obtain MRI left foot in AM to assess for osteomyelitis. CRP elevated at 147.[address] Leyva, [facility], for further evaluation and wound care recommendations. Initial lactate was 1.1. Will monitor serial lactates. Procalcitonin 0.08. Patient given NS x 2L in ED prior to admission due to hyperglycemia with slight improvement in blood sugars. Will continue NS 100cc/hr for hydration and electrolyte correction. Hyponatremia noted on admission (Na 131). Will recheck CMP at 1600 to monitor electrolytes and rate of correction. Patient admits to being noncompliant with medications. Last known medication list per [facility] was: * Lisinopril 5mg PO daily. * Humalog 12 units WM. * Levemir 54 units QHS * Metformin 1000mg po BID. Initiate lisinopril 5mg daily now. Monitor blood pressure closely as well as renal function. Initiate Humalog 8 units with meals and Levemir 30 units QHS. Monitor blood sugars closely. SSI available as indicated. Consider restarting metformin if tolerating insulin and blood sugars remain elevated. Monitor closely on telemetry. Monitor closely for signs of hypoglycemia and hypotension given initiation of medications. Diabetic diet at 2000 kcal and will consult extension educator. Recheck labs in AM to monitor blood counts, electrolytes and renal function. Upon discharge, patient will need to establish care with a primary provider. Importance of medication compliance was discussed at length with the patient 05/01/18 WBC with decrease to 14.9. Low grade temp to 99.9. Continue cefepime and vancomycin for antimicrobial coverage. Wound debridement preformed today by Dr Leyva. MRI without evidence of osteomyelitis. Can discontinue IVF as oral drive doing well. Continue with Levemir and Humalog for glycemic control - monitor sugars.
[2018-05-01] MEDS: INSULIN DETEMIR 100unit/ml INJECTION SQ SCH (20:50)
[2018-05-01] MEDS: SALINE FLUSH 10ml SYRINGE IVF PRN (20:52)
[2018-05-02] MEDS: CEFEPIME 2 GM in NS 100 ML IV SCH ×2 (00:15→14:57)
[2018-05-02] MEDS: INSULIN ASPART 100unit/ml INJECTION SQ PRN ×4 (06:47→20:29)
[2018-05-02] MEDS: INSULIN ASPART 100unit/ml INJECTION SQ SCH ×3 (09:20→17:53)
[2018-05-02] MEDS: LISINOPRIL 5 MG TABLET PO SCH (09:20)
[2018-05-02] MEDS: POLYETHYL GLYCOL 3350 17gm PACKET PO SCH (09:21)
--- NOTE | 2018-05-02 11:53 | Orthopedic Progress Note ---
Date: Date: 05/02/18 Time: 1150 Subjective/Severity of Illness: Phil is lying in bed this morning. Denies any pain with his left foot, he has been elevating while in bed. Denies any CP, SOA, nausea. Exam - Constitutional Vital Signs: Temperature 99.5 F 05/02/18 08:42 Pulse Rate 88 05/02/18 08:42 Respiratory Rate 18 05/01/18 23:48 Blood Pressure 139/77 05/02/18 08:42 Pulse Oximetry 94 05/02/18 08:42 General: no acute distress, well developed, well groomed Nutritional Appearance: well nourished Orientation: alert, oriented x3 - LLE Postoperative Appearance: extremity compartments are soft and nontender Neurological: decreased sensation to light touch Vascular: dorsalis pedis pulse within normal limits - Wound L PLANTAR FOOT BETWEEN FOURTH AND FIFTH TOES Type of Wound/Ulcer: Diabetic Ulcer Wound Dressing: Hydrofera Blue Wound Drainage Amount: None Wound Drainage Odor: No Odor Wound Size: > than 1 squre cm Wound Bed Appearance: Beefy Red Periwound area: Macerated Wound Comments: Wound edges debride with sharp curette. - Labs Result Diagrams: 05/02/18 04:13 05/02/18 04:13 Abnormal lab results 05/02/18 05/02/18 Range/Units 04:13 04:13 WBC 11.7 H (4.5-11.0) T/MM3 Hgb 12.3 L (13.5-17.5) GM/DL Hct 36.9 L (41-53) % Immature Gran % (Auto) 0.9 H (0.0-0.5) % Neut % (Auto) 66.1 H (33-66) % Lymph % (Auto) 21.2 L (23-45) % [place] # (Auto) 1.0 H (0-0.8) T/MM3 Abs Immat Gran (auto) 0.10 H (0.00-0.03) T/MM3 Creatinine 0.7 L (0.8-1.5) mg/dL Glucose 223 H (75-110) MG/DL Calculated Osmolality 285 H (261-280) MOSM/KG H & H 05/01/18 05/02/18 Range/Units 04:32 04:13 Hgb 12.6 L 12.3 L (13.5-17.5) GM/DL Hct 36.2 L 36.9 L (41-53) % Orthopedic Assessment and Plan (1) Ulcer of left foot due to type 2 diabetes mellitus Status: Acute Assessment and Plan: Debridement of macerated periwound today, Hydrofera Blue applied with Mepilex. Change q3 days. Plan follow up in Wound Clinic upon discharge. Medical management per hospitalist Hospital Course Summary Disclaimer: The visit summary below is not to be considered part of the above Progress Note. Hospital Course: 04/30/18 Admit patient to inpatient status under the care of Dr. Amaya and the hospitalist service. Patient given Clindamycin 600mg IV x 1 dose in ED. Unfortunately blood cultures were not obtained prior to giving the antibiotics. Monitor blood culture results. Will initiate Vancomycin per pharmacy as well as cefepime 2g IV Q12 hours for empiric coverage of suspected pathogens. Obtain MRI left foot in AM to assess for osteomyelitis. CRP elevated at 147.[address] Leyva, [facility], for further evaluation and wound care recommendations. Initial lactate was 1.1. Will monitor serial lactates. Procalcitonin 0.08. Patient given NS x 2L in ED prior to admission due to hyperglycemia with slight improvement in blood sugars. Will continue NS 100cc/hr for hydration and electrolyte correction. Hyponatremia noted on admission (Na 131). Will recheck CMP at 1600 to monitor electrolytes and rate of correction. Patient admits to being noncompliant with medications. Last known medication list per [facility] was: * Lisinopril 5mg PO daily. * Humalog 12 units WM. * Levemir 54 units QHS * Metformin 1000mg po BID. Initiate lisinopril 5mg daily now. Monitor blood pressure closely as well as renal function. Initiate Humalog 8 units with meals and Levemir 30 units QHS. Monitor blood sugars closely. SSI available as indicated. Consider restarting metformin if tolerating insulin and blood sugars remain elevated. Monitor closely on telemetry. Monitor closely for signs of hypoglycemia and hypotension given initiation of medications. Diabetic diet at 2000 kcal and will consult music educator. Recheck labs in AM to monitor blood counts, electrolytes and renal function. Upon discharge, patient will need to establish care with a primary provider. Importance of medication compliance was discussed at length with the patient 05/01/18 WBC with decrease to 14.9. Low grade temp to 99.9. Continue cefepime and vancomycin for antimicrobial coverage. Wound debridement preformed today by Dr Leyva. MRI without evidence of osteomyelitis. Can discontinue IVF as oral drive doing well. Continue with Levemir and Humalog for glycemic control - monitor sugars.
--- NOTE | 2018-05-02 14:08 | Progress Note ---
- Date 05/02/18 Subjective: Phil is seen this afternoon in follow up while resting in bed. He states that he is feeling pretty good without pain at rest. He does report foot pain with ambulation. Denies feeling short of breath or having GI concerns. Appetite is good, bowels moved yesterday. Fasting BGM this am was 206. Objective Vital signs: Temperature 99.5 F 05/02/18 08:42 Pulse Rate 88 05/02/18 08:42 Respiratory Rate 18 05/01/18 23:48 Blood Pressure 139/77 05/02/18 08:42 Pulse Oximetry 94 05/02/18 08:42 Height/Weight/BMI: Height 1.73 m Weight 124.9 kg Body Mass Index 41.4 - Constitutional Present: no acute distress, well nourished, well developed - Routine HEENT Exam Eye: Present: EOMI ENT: Present: mucous membranes moist, dentition normal - Routine Respiratory Exam Present: CTA bilaterally. Absent: wheezes - Routine Cardiovascular Exam Present: RRR, S1, S2. Absent: murmur - Routine Abdominal Exam Present: soft, normoactive bowel sounds, non distended. Absent: tenderness - Routine Extremities Exam Present: no edema, pulses intact Comments: Dressing to left toes - Routine Skin Exam Present: intact, dry, warm - Routine Neurological Exam Present: alert, oriented X3, CN II-XII intact, moving all extremities - Routine Lymphatic Exam Lymphatic: Absent: adenopathy - Routine Psychiatric Exam Present: normal affect, normal thought process, cooperative Results - Labs CBC & Chem 7: 05/02/18 04:13 05/02/18 04:13 Microbiology Results: Microbiology 04/30/18 11:41 Peripheral/Iv Start Blood Culture - Preliminary No Growth After 2 Days 04/30/18 11:40 Peripheral/Iv Start Blood Culture - Preliminary No Growth After 2 Days Assessment and Plan Assessment and Plan: Assessment: Sepsis secondary to cellulitis of the left foot as indicated by tachycardia, tachypnea, leukocytosis. Cellulitis left foot. Diabetic foot decubitus ulceration MRI without evidence of osteomyelitis Diabetes mellitus, type II, uncontrolled with acute hyperglycemia - A1c 12.4 Anemia, mild, (POA) - Hgb 13.2 Hyponatremia (POA) - Na 131 Hypomagnesium (POA) - Mg 1.5 Hypertension, uncontrolled. Medication noncompliance Peripheral neuropathy Morbid Obesity - BMI 41.5 Sleep apnea with home CPAP Plan Continue cefepime and vancomycin for antimicrobial coverage. Dressing changed today with debridement. Will require dressing change every 3 days Plan to follow in the outpatient wound center at time of discharge Continue to work on blood sugar management with Humalog and Levemir Leukocytosis improving- 11.7 He is planning to establish PCP with Dr Badillo at time of discharge Resuscitation Status: Full Code - Time spent with patient Time with patient PN: 25 minutes - Physician Narrative Physician: Baljeet Mauricio MD Narrative: Date: 05/02/18 Time: 1852 Have independently interviewed and examined pt. Chart reviewed. Case discussed with CM, Dr Leyva, and my SHOE CUTTER. Care plan developed with my supervision; agree with above. Doing okay overall. No f/c. Pain variable to foot-gets twinges at times. Working on keeping leg elevated to help decrease pain and swelling. Breathing well. Eating well. Bowels stable. Lungs: clear bilaterally CV: regular AB: soft nt MSE: awake alert appropriate Plan: WBC trending down, will continue with antibiotic therapy. Wound improving per Dr Leyva-they anticipate dressing change tomorrow. Has obtained boot for foot. Possible discharge in near future if continued to do well. Hospital Course Summary Disclaimer: The visit summary below is not to be considered part of the above Progress Note. Hospital Course: 04/30/18 Admit patient to inpatient status under the care of Dr. Amaya and the hospitalist service. Patient given Clindamycin 600mg IV x 1 dose in ED. Unfortunately blood cultures were not obtained prior to giving the antibiotics. Monitor blood culture results. Will initiate Vancomycin per pharmacy as well as cefepime 2g IV Q12 hours for empiric coverage of suspected pathogens. Obtain MRI left foot in AM to assess for osteomyelitis. CRP elevated at 147.[address] Leyva, ortho, for further evaluation and wound care recommendations. Initial lactate was 1.1. Will monitor serial lactates. Procalcitonin 0.08. Patient given NS x 2L in ED prior to admission due to hyperglycemia with slight improvement in blood sugars. Will continue NS 100cc/hr for hydration and electrolyte correction. Hyponatremia noted on admission (Na 131). Will recheck CMP at 1600 to monitor electrolytes and rate of correction. Patient admits to being noncompliant with medications. Last known medication list per [facility] was: * Lisinopril 5mg PO daily. * Humalog 12 units WM. * Levemir 54 units QHS * Metformin 1000mg po BID. Initiate lisinopril 5mg daily now. Monitor blood pressure closely as well as renal function. Initiate Humalog 8 units with meals and Levemir 30 units QHS. Monitor blood sugars closely. SSI available as indicated. Consider restarting metformin if tolerating insulin and blood sugars remain elevated. Monitor closely on telemetry. Monitor closely for signs of hypoglycemia and hypotension given initiation of medications. Diabetic diet at 2000 kcal and will consult special education paraeducator. Recheck labs in AM to monitor blood counts, electrolytes and renal function. Upon discharge, patient will need to establish care with a primary provider. Importance of medication compliance was discussed at length with the patient 05/01/18 WBC with decrease to 14.9. Low grade temp to 99.9. Continue cefepime and vancomycin for antimicrobial coverage. Wound debridement preformed today by Dr Leyva. MRI without evidence of osteomyelitis. Can discontinue IVF as oral drive doing well. Continue with Levemir and Humalog for glycemic control - monitor sugars. 05/02/18 Continue cefepime and vancomycin for antimicrobial coverage. Dressing changed today with debridement. Will require dressing change every 3 days Plan to follow in the outpatient wound center at time of discharge Continue to work on blood sugar management with Humalog and Levemir Leukocytosis improving- 11.7 He is planning to establish PCP with Dr Badillo at time of discharge
--- NOTE | 2018-05-02 14:58 | Procedure Note ---
DATE OF PROCEDURE 05/02/2018 PREPROCEDURE DIAGNOSIS Left foot diabetic foot ulcer. POSTPROCEDURE DIAGNOSIS Left foot diabetic foot ulcer. PROCEDURE Sharp debridement of left foot diabetic foot ulcer. SURGEON Jaylon Leyva MD ANESTHESIA None COMPLICATIONS None DESCRIPTION OF PROCEDURE After oral consent was obtained, I measured his diabetic foot ulcer which started between the fourth and fifth toes and moved distally towards the heel for approximately 4 cm. Measurements were 4.2 cm x 1.2 cm. The base was 100% necrotic tissue. The periwound area was macerated skin. I started by removing the and macerated skin sharply first with scissors and then with a curet. The center of the wound was dark fibrous subcutaneous tissue. There were no deep holes or tunneling. Once all obviously necrotic tissue was removed sharply , I scored the deep fibrous fascial tissue with a 15 blade, cross-hashing it. I did get a return of blood in these cross-hashes. The wound was then dressed with Hydrofera blue and Mepilex dressing. He tolerated this well. [facility]
[2018-05-02] MEDS: SALINE FLUSH 10ml SYRINGE IVF PRN ×2 (15:01→20:25)
[2018-05-02] MEDS: INSULIN DETEMIR 100unit/ml INJECTION SQ SCH (20:25)
[2018-05-03] MEDS: NS FLUSH BAG 500ml IV PRN (00:15)
[2018-05-03] MEDS: CEFEPIME 2 GM in NS 100 ML IV SCH ×2 (00:15→13:09)
[2018-05-03] MEDS: INSULIN ASPART 100unit/ml INJECTION SQ PRN ×4 (06:24→21:18)
--- NOTE | 2018-05-03 08:09 | Orthopedic Progress Note ---
Date: Date: 05/03/18 Time: 808 Subjective/Severity of Illness: Mr. Dawkins is lying in bed this morning on rounds. Denies any pain with left foot. He has cefepime and vano for left foot cellulitis. Has been afebrile. Denies CP, SOA, nausea, chills, body aches. Exam - Constitutional Vital Signs: Temperature 98.1 F 05/03/18 08:00 Pulse Rate 83 05/03/18 08:00 Respiratory Rate 18 05/03/18 08:00 Blood Pressure 143/85 H 05/03/18 08:00 Pulse Oximetry 94 05/03/18 08:00 General: no acute distress, well developed, well groomed Nutritional Appearance: well nourished Orientation: alert, oriented x3 - LLE Postoperative Appearance: extremity compartments are soft and nontender Neurological: decreased sensation to light touch Vascular: dorsalis pedis pulse within normal limits - Respiratory Respiratory Exam: non-labored - Cardiac Cardiovascular exam: pedal pulses intact - Wound L PLANTAR FOOT BETWEEN FOURTH AND FIFTH TOES Type of Wound/Ulcer: Diabetic Ulcer Wound Dressing: Hydrofera Blue Wound Drainage Amount: None Wound Drainage Odor: No Odor Wound Size: > than 1 squre cm Wound Bed Appearance: Beefy Red Periwound area: Other (periwound maceration improved from yesterday) - Labs Result Diagrams: 05/02/18 04:13 05/02/18 04:13 H & H 05/01/18 05/02/18 Range/Units 04:32 04:13 Hgb 12.6 L 12.3 L (13.5-17.5) GM/DL Hct 36.2 L 36.9 L (41-53) % Orthopedic Assessment and Plan (1) Ulcer of left foot due to type 2 diabetes mellitus Status: Acute Assessment and Plan: Dressing changed today (fell off during exam), wound is improving. Continue Hydrofera Blue applied with Mepilex. Change q3 days. Plan follow up in Wound Clinic upon discharge. Medical management per hospitalist Hospital Course Summary Disclaimer: The visit summary below is not to be considered part of the above Progress Note. Hospital Course: 04/30/18 Admit patient to inpatient status under the care of Dr. Amaya and the hospitalist service. Patient given Clindamycin 600mg IV x 1 dose in ED. Unfortunately blood cultures were not obtained prior to giving the antibiotics. Monitor blood culture results. Will initiate Vancomycin per pharmacy as well as cefepime 2g IV Q12 hours for empiric coverage of suspected pathogens. Obtain MRI left foot in AM to assess for osteomyelitis. CRP elevated at 147.[address] Leyva, [facility], for further evaluation and wound care recommendations. Initial lactate was 1.1. Will monitor serial lactates. Procalcitonin 0.08. Patient given NS x 2L in ED prior to admission due to hyperglycemia with slight improvement in blood sugars. Will continue NS 100cc/hr for hydration and electrolyte correction. Hyponatremia noted on admission (Na 131). Will recheck CMP at 1600 to monitor electrolytes and rate of correction. Patient admits to being noncompliant with medications. Last known medication list per [facility] was: * Lisinopril 5mg PO daily. * Humalog 12 units WM. * Levemir 54 units QHS * Metformin 1000mg po BID. Initiate lisinopril 5mg daily now. Monitor blood pressure closely as well as renal function. Initiate Humalog 8 units with meals and Levemir 30 units QHS. Monitor blood sugars closely. SSI available as indicated. Consider restarting metformin if tolerating insulin and blood sugars remain elevated. Monitor closely on telemetry. Monitor closely for signs of hypoglycemia and hypotension given initiation of medications. Diabetic diet at 2000 kcal and will consult smoking tobacco packing machine hand. Recheck labs in AM to monitor blood counts, electrolytes and renal function. Upon discharge, patient will need to establish care with a primary provider. Importance of medication compliance was discussed at length with the patient 05/01/18 WBC with decrease to 14.9. Low grade temp to 99.9. Continue cefepime and vancomycin for antimicrobial coverage. Wound debridement preformed today by Dr Leyva. MRI without evidence of osteomyelitis. Can discontinue IVF as oral drive doing well. Continue with Levemir and Humalog for glycemic control - monitor sugars. 05/02/18 Continue cefepime and vancomycin for antimicrobial coverage. Dressing changed today with debridement. Will require dressing change every 3 days Plan to follow in the outpatient wound center at time of discharge Continue to work on blood sugar management with Humalog and Levemir Leukocytosis improving- 11.7 He is planning to establish PCP with Dr Badillo at time of discharge
[2018-05-03] MEDS: LISINOPRIL 5 MG TABLET PO SCH (09:04)
[2018-05-03] MEDS: INSULIN ASPART 100unit/ml INJECTION SQ SCH ×3 (09:05→17:36)
[2018-05-03] MEDS: POLYETHYL GLYCOL 3350 17gm PACKET PO SCH (09:05)
--- NOTE | 2018-05-03 09:15 | Pharmacy Consult-Antibiotics ---
Pharmacy Consult-Vancomycin - Laboratory Information WBC 11.6 T/MM3 (4.5-11.0) H 05/03/18 08:04 BUN 13.0 MG/DL (9-20) 05/03/18 08:04 Creatinine 0.8 mg/dL (0.8-1.5) 05/03/18 08:04 Procalcitonin 0.08 NG/ML 04/30/18 11:41 Vancomycin Trough 14.31 ug/mL (15-20) L 05/03/18 08:04 - Consult Information VANCOMYCIN CONSULT: Vancomycin Trough = 14.31 mcg/ml. Today's SCr = 0.8 mg/dl. Will continue with Vancomycin 2000 mg IV q12hrs. Will continue to monitor and make adjustments accordingly. Thank you. Priya Wetzel, DilciaD
--- NOTE | 2018-05-03 17:51 | Progress Note ---
- Date 05/03/18 Subjective: F/U: Sepsis secondary to cellulitis of the left foot, Cellulitis left foot, Diabetic foot ulceration. Doing okay, but worries about how his left foot is looking-more red on top of foot. Worries it's not healing. Worries wound care is not optimal. Very, very worried as he does not want to loose his foot. No redness streaking up leg. No significant f/c. Eating well. Bowels moving. Breathing well. Keeps leg elevated except for the times he is up. Objective Vital signs: Temperature 96.9 F 05/03/18 15:13 Pulse Rate 93 05/03/18 15:13 Respiratory Rate 18 05/03/18 08:00 Blood Pressure 169/88 H 05/03/18 15:13 Pulse Oximetry 99 05/03/18 15:13 Height/Weight/BMI: Height 1.73 m Weight 123.6 kg Body Mass Index 41.4 - Constitutional Present: well nourished, well developed, average body habitus, morbidly obese, cooperative - Routine HEENT Exam Head: Present: normocephalic, atraumatic Eye: Present: EOMI, PERRL, normal accommodation ENT: Present: mucous membranes moist - Routine Respiratory Exam Present: CTA bilaterally. Absent: respiratory distress, wheezes, crackles - Routine Cardiovascular Exam Present: RRR, no murmur - Routine Abdominal Exam Present: soft, normoactive bowel sounds, non distended, non tender. Absent: guarding - Routine Extremities Exam Present: edema (+1 BLE). Absent: cyanosis, clubbing - Routine Skin Exam Present: erythema (On dorsum of left foot), dry, warm - Routine Neurological Exam Present: alert, oriented X3, CN II-XII intact, moving all extremities, vision grossly intact, hearing grossly intact, normal speech. Absent: motor deficit, altered mental status - Routine Psychiatric Exam Present: normal affect, normal thought process, cooperative, good insight, good judgment Results - Labs CBC & Chem 7: 05/03/18 08:04 05/03/18 08:04 Microbiology Results: Microbiology 04/30/18 11:41 Peripheral/Iv Start Blood Culture - Preliminary No Growth After 3 Days 04/30/18 11:40 Peripheral/Iv Start Blood Culture - Preliminary No Growth After 3 Days Assessment and Plan Assessment and Plan: Assessment: Sepsis secondary to cellulitis of the left foot as indicated by tachycardia, tachypnea, leukocytosis. Cellulitis left foot. Diabetic foot decubitus ulceration MRI without evidence of osteomyelitis Diabetes mellitus, type II, uncontrolled with acute hyperglycemia - A1c 12.4 Anemia, mild, (POA) - Hgb 13.2 Hyponatremia (POA) - Na 131 Hypomagnesium (POA) - Mg 1.5 Hypertension, uncontrolled. Medication noncompliance Peripheral neuropathy Morbid Obesity - BMI 41.5 Sleep apnea with home CPAP Plan Continue cefepime and vancomycin for antimicrobial coverage. Dressing changed today. Will require dressing change every 3 days Will increase Lantus to 33 units and mealtime insulin to 10 units to help blood sugar control. WBC with little decrease from yesterday. Patient with concerns how his foot wound is doing. Will continue with hospitalization and wound care. Recheck CBC and BMP in am due to resolving cellulitis and medication use. DVT Prophylaxis: SCD's Resuscitation Status: Full Code - Time spent with patient Time with patient PN: 25 minutes - Physician Narrative Physician: Baljeet Mauricio MD Narrative: Date: 05/03/18 Time: 7288 Hospital Course Summary Disclaimer: The visit summary below is not to be considered part of the above Progress Note. Hospital Course: 04/30/18 Admit patient to inpatient status under the care of Dr. Amaya and the hospitalist service. Patient given Clindamycin 600mg IV x 1 dose in ED. Unfortunately blood cultures were not obtained prior to giving the antibiotics. Monitor blood culture results. Will initiate Vancomycin per pharmacy as well as cefepime 2g IV Q12 hours for empiric coverage of suspected pathogens. Obtain MRI left foot in AM to assess for osteomyelitis. CRP elevated at 147.2 on admission. Consult anupama Newell, for further evaluation and wound care recommendations. Initial lactate was 1.1. Will monitor serial lactates. Procalcitonin 0.08. Patient given NS x 2L in ED prior to admission due to hyperglycemia with slight improvement in blood sugars. Will continue NS 100cc/hr for hydration and electrolyte correction. Hyponatremia noted on admission (Na 131). Will recheck CMP at 1600 to monitor electrolytes and rate of correction. Patient admits to being noncompliant with medications. Last known medication list per [facility] was: * Lisinopril 5mg PO daily. * Humalog 12 units WM. * Levemir 54 units QHS * Metformin 1000mg po BID. Initiate lisinopril 5mg daily now. Monitor blood pressure closely as well as renal function. Initiate Humalog 8 units with meals and Levemir 30 units QHS. Monitor blood sugars closely. SSI available as indicated. Consider restarting metformin if tolerating insulin and blood sugars remain elevated. Monitor closely on telemetry. Monitor closely for signs of hypoglycemia and hypotension given initiation of medications. Diabetic diet at 2000 kcal and will consult early childhood special educator. Recheck labs in AM to monitor blood counts, electrolytes and renal function. Upon discharge, patient will need to establish care with a primary provider. Importance of medication compliance was discussed at length with the patient 05/01/18 WBC with decrease to 14.9. Low grade temp to 99.9. Continue cefepime and vancomycin for antimicrobial coverage. Wound debridement preformed today by Dr Leyva. MRI without evidence of osteomyelitis. Can discontinue IVF as oral drive doing well. Continue with Levemir and Humalog for glycemic control - monitor sugars. 05/02/18 Continue cefepime and vancomycin for antimicrobial coverage. Dressing changed today with debridement. Will require dressing change every 3 days Plan to follow in the outpatient wound center at time of discharge Continue to work on blood sugar management with Humalog and Levemir Leukocytosis improving- 11.7 He is planning to establish PCP with Dr Badillo at time of discharge 05/03/18 Continue cefepime and vancomycin for antimicrobial coverage. Dressing changed today. Will require dressing change every 3 days Will increase Lantus to 33 units and mealtime insulin to 10 units to help blood sugar control. WBC with little decrease from yesterday. Patient with concerns how his foot wound is doing. Will continue with hospitalization and wound care.
[2018-05-03] MEDS ORDERED: POLYETHYL GLYCOL 3350 17gm PACKET PO PRN (17:53)
[2018-05-03] MEDS: SALINE FLUSH 10ml SYRINGE IVF PRN (20:41)
[2018-05-03] MEDS ORDERED: INSULIN DETEMIR 100unit/ml INJECTION SQ SCH (21:00)
[2018-05-04] MEDS: CEFEPIME 2 GM in NS 100 ML IV SCH ×2 (00:15→12:20)
[2018-05-04] MEDS: INSULIN ASPART 100unit/ml INJECTION SQ PRN ×4 (06:45→21:00)
[2018-05-04] MEDS: LISINOPRIL 5 MG TABLET PO SCH (08:39)
[2018-05-04] MEDS: INSULIN ASPART 100unit/ml INJECTION SQ SCH ×3 (09:44→18:25)
--- NOTE | 2018-05-04 14:06 | Orthopedic Progress Note ---
Date: Date: 05/04/18 Time: 1403 Subjective/Severity of Illness: Mr. Dawkins is ambulating in the room when I round without his post-op shoe on. He is concerned about his left foot cellulitis and feels it has more redness. Has been treated for chronic wound on his hand in the past and felt silver dressing worked better for him at that time. WBC improved today 9.3. Continues to be on Cefepime and Vanco. Has been afebrile. Denies chills, body aches, CP, SOA, nausea. Exam - Constitutional Vital Signs: Temperature 97.1 F 05/04/18 07:27 Pulse Rate 79 05/04/18 07:27 Respiratory Rate 16 05/04/18 07:27 Blood Pressure 142/87 H 05/04/18 07:27 Pulse Oximetry 93 05/04/18 07:27 General: no acute distress, well developed, well groomed Nutritional Appearance: well nourished Orientation: alert, oriented x3 - LLE Skin: erythema (dorsal aspect of left foot ) Neurological: decreased sensation to light touch Vascular: dorsalis pedis pulse within normal limits - Respiratory Respiratory Exam: non-labored - Cardiac Cardiovascular exam: pedal pulses intact - Wound L PLANTAR FOOT BETWEEN FOURTH AND FIFTH TOES Type of Wound/Ulcer: Diabetic Ulcer Wound Dressing: Hydrofera Blue Wound Drainage Amount: None Wound Drainage Odor: No Odor Wound Size: > than 1 squre cm Wound Bed Appearance: Beefy Red Periwound area: Macerated (between 4th and 5th toes), Other (periwound maceration improved from yesterday) - Labs Result Diagrams: 05/04/18 04:44 05/04/18 04:44 Abnormal lab results 05/04/18 05/04/18 Range/Units 04:44 04:44 Hgb 12.5 L (13.5-17.5) GM/DL Hct 37.2 L (41-53) % MPV 9.2 L (9.4-12.4) UM3 Immature Gran % (Auto) 0.8 H (0.0-0.5) % Neut % (Auto) 66.8 H (33-66) % Lymph % (Auto) 21.8 L (23-45) % Abs Immat Gran (auto) 0.07 H (0.00-0.03) T/MM3 Creatinine 0.7 L (0.8-1.5) mg/dL Glucose 221 H (75-110) MG/DL Calculated Osmolality 282 H (261-280) MOSM/KG H & H 05/01/18 05/02/18 05/03/18 Range/Units 04:32 04:13 08:04 Hgb 12.6 L 12.3 L 12.5 L (13.5-17.5) GM/DL Hct 36.2 L 36.9 L 37.9 L (41-53) % 05/04/18 Range/Units 04:44 Hgb 12.5 L (13.5-17.5) GM/DL Hct 37.2 L (41-53) % Orthopedic Assessment and Plan (1) Ulcer of left foot due to type 2 diabetes mellitus Status: Acute Assessment and Plan: Dressing changed today, wound on plantar aspect of foot is improving, increased maceration between 4th and 5th toes. Changed to Aquacel Ag between toes, and continue Hydrofera Blue on plantar wound. WBAT in post-op shoe Plan follow up in Wound Clinic upon discharge. Medical management per hospitalist. Patient has been on cefepime and vanco for cellulitis Hospital Course Summary Disclaimer: The visit summary below is not to be considered part of the above Progress Note. Hospital Course: 04/30/18 Admit patient to inpatient status under the care of Dr. Amaya and the hospitalist service. Patient given Clindamycin 600mg IV x 1 dose in ED. Unfortunately blood cultures were not obtained prior to giving the antibiotics. Monitor blood culture results. Will initiate Vancomycin per pharmacy as well as cefepime 2g IV Q12 hours for empiric coverage of suspected pathogens. Obtain MRI left foot in AM to assess for osteomyelitis. CRP elevated at 147.[address] Leyva, ortho, for further evaluation and wound care recommendations. Initial lactate was 1.1. Will monitor serial lactates. Procalcitonin 0.08. Patient given NS x 2L in ED prior to admission due to hyperglycemia with slight improvement in blood sugars. Will continue NS 100cc/hr for hydration and electrolyte correction. Hyponatremia noted on admission (Na 131). Will recheck CMP at 1600 to monitor electrolytes and rate of correction. Patient admits to being noncompliant with medications. Last known medication list per [facility] was: * Lisinopril 5mg PO daily. * Humalog 12 units WM. * Levemir 54 units QHS * Metformin 1000mg po BID. Initiate lisinopril 5mg daily now. Monitor blood pressure closely as well as renal function. Initiate Humalog 8 units with meals and Levemir 30 units QHS. Monitor blood sugars closely. SSI available as indicated. Consider restarting metformin if tolerating insulin and blood sugars remain elevated. Monitor closely on telemetry. Monitor closely for signs of hypoglycemia and hypotension given initiation of medications. Diabetic diet at 2000 kcal and will consult life skills educator. Recheck labs in AM to monitor blood counts, electrolytes and renal function. Upon discharge, patient will need to establish care with a primary provider. Importance of medication compliance was discussed at length with the patient 05/01/18 WBC with decrease to 14.9. Low grade temp to 99.9. Continue cefepime and vancomycin for antimicrobial coverage. Wound debridement preformed today by Dr Leyva. MRI without evidence of osteomyelitis. Can discontinue IVF as oral drive doing well. Continue with Levemir and Humalog for glycemic control - monitor sugars. 05/02/18 Continue cefepime and vancomycin for antimicrobial coverage. Dressing changed today with debridement. Will require dressing change every 3 days Plan to follow in the outpatient wound center at time of discharge Continue to work on blood sugar management with Humalog and Levemir Leukocytosis improving- 11.7 He is planning to establish PCP with Dr Badillo at time of discharge 05/03/18 Continue cefepime and vancomycin for antimicrobial coverage. Dressing changed today. Will require dressing change every 3 days Will increase Lantus to 33 units and mealtime insulin to 10 units to help blood sugar control. WBC with little decrease from yesterday. Patient with concerns how his foot wound is doing. Will continue with hospitalization and wound care.
--- NOTE | 2018-05-04 18:02 | Progress Note ---
- Date 05/04/18 Subjective: F/U: Sepsis secondary to cellulitis of the left foot, Cellulitis left foot, Diabetic foot ulceration. Doing well other than continued redness/swelling to top of foot. Notes minimal pain. Wearing post op boot routinely now. Elevating foot/leg at rest. Eating well. Breathing well. Objective Vital signs: Temperature 99.3 F 05/04/18 16:00 Pulse Rate 87 05/04/18 16:00 Respiratory Rate 14 05/04/18 16:00 Blood Pressure 161/76 H 05/04/18 16:00 Pulse Oximetry 100 05/04/18 16:00 Height/Weight/BMI: Height 1.73 m Weight 126.8 kg Body Mass Index 41.4 - Constitutional Present: well nourished, well developed, average body habitus, morbidly obese, cooperative - Routine HEENT Exam Head: Present: normocephalic, atraumatic Eye: Present: EOMI, PERRL ENT: Present: mucous membranes moist - Routine Respiratory Exam Present: CTA bilaterally. Absent: rales, respiratory distress, rhonchi, wheezes , crackles - Routine Cardiovascular Exam Present: RRR, no murmur - Routine Abdominal Exam Present: soft, normoactive bowel sounds, non distended, non tender - Routine Extremities Exam Present: edema (+1 edema to left foot and distal leg). Absent: cyanosis, clubbing - Routine Musculoskeletal Exam Musculoskeletal: Present: no clubbing or cyanosis - Routine Skin Exam Present: erythema (Top of foot), dry, warm - Routine Neurological Exam Present: alert, oriented X3, CN II-XII intact, moving all extremities, vision grossly intact, hearing grossly intact, normal speech. Absent: motor deficit, altered mental status - Routine Psychiatric Exam Present: normal affect, normal thought process, cooperative Results - Labs CBC & Chem 7: 05/04/18 04:44 05/04/18 04:44 Microbiology Results: Microbiology 04/30/18 11:41 Peripheral/Iv Start Blood Culture - Preliminary No Growth After 4 Days 04/30/18 11:40 Peripheral/Iv Start Blood Culture - Preliminary No Growth After 4 Days Assessment and Plan Assessment and Plan: Assessment: Sepsis secondary to cellulitis of the left foot as indicated by tachycardia, tachypnea, leukocytosis. Cellulitis left foot. Diabetic foot decubitus ulceration MRI without evidence of osteomyelitis Diabetes mellitus, type II, uncontrolled with acute hyperglycemia - A1c 12.4 Anemia, mild, (POA) - Hgb 13.2 Hyponatremia (POA) - Na 131 Hypomagnesium (POA) - Mg 1.5 Hypertension, uncontrolled. Medication noncompliance Peripheral neuropathy Morbid Obesity - BMI 41.5 Sleep apnea with home CPAP Plan WBC improved to 9.3 but persistent erythema noted to top of foot. Will change cefepime to clindamycin 600mg IV q6 hours and continue vancomycin. Discussed with ortho and foot wound its self is doing well. Encourage continued elevation at rest and use of post op shoe when up and ambulatory. Sugars with elevation - increase Lantus to 38 units. Recheck CBC, CRP, and BMP in am due to resolving sepsis/cellulitis and medication use. Case discussed with ortho. DVT Prophylaxis: SCD's Resuscitation Status: Full Code - Time spent with patient Time with patient PN: 25 minutes - Physician Narrative Physician: Baljeet Mauricio MD Narrative: Date: 05/04/18 Time: 175 Hospital Course Summary Disclaimer: The visit summary below is not to be considered part of the above Progress Note. Hospital Course: 04/30/18 Admit patient to inpatient status under the care of Dr. Amaya and the hospitalist service. Patient given Clindamycin 600mg IV x 1 dose in ED. Unfortunately blood cultures were not obtained prior to giving the antibiotics. Monitor blood culture results. Will initiate Vancomycin per pharmacy as well as cefepime 2g IV Q12 hours for empiric coverage of suspected pathogens. Obtain MRI left foot in AM to assess for osteomyelitis. CRP elevated at 147.[address] Leyva, [facility], for further evaluation and wound care recommendations. Initial lactate was 1.1. Will monitor serial lactates. Procalcitonin 0.08. Patient given NS x 2L in ED prior to admission due to hyperglycemia with slight improvement in blood sugars. Will continue NS 100cc/hr for hydration and electrolyte correction. Hyponatremia noted on admission (Na 131). Will recheck CMP at 1600 to monitor electrolytes and rate of correction. Patient admits to being noncompliant with medications. Last known medication list per [facility] was: * Lisinopril 5mg PO daily. * Humalog 12 units WM. * Levemir 54 units QHS * Metformin 1000mg po BID. Initiate lisinopril 5mg daily now. Monitor blood pressure closely as well as renal function. Initiate Humalog 8 units with meals and Levemir 30 units QHS. Monitor blood sugars closely. SSI available as indicated. Consider restarting metformin if tolerating insulin and blood sugars remain elevated. Monitor closely on telemetry. Monitor closely for signs of hypoglycemia and hypotension given initiation of medications. Diabetic diet at 2000 kcal and will consult clinical staff educator. Recheck labs in AM to monitor blood counts, electrolytes and renal function. Upon discharge, patient will need to establish care with a primary provider. Importance of medication compliance was discussed at length with the patient 05/01/18 WBC with decrease to 14.9. Low grade temp to 99.9. Continue cefepime and vancomycin for antimicrobial coverage. Wound debridement preformed today by Dr Leyva. MRI without evidence of osteomyelitis. Can discontinue IVF as oral drive doing well. Continue with Levemir and Humalog for glycemic control - monitor sugars. 05/02/18 Continue cefepime and vancomycin for antimicrobial coverage. Dressing changed today with debridement. Will require dressing change every 3 days Plan to follow in the outpatient wound center at time of discharge Continue to work on blood sugar management with Humalog and Levemir Leukocytosis improving- 11.7 He is planning to establish PCP with Dr Badillo at time of discharge 05/03/18 Continue cefepime and vancomycin for antimicrobial coverage. Dressing changed today. Will require dressing change every 3 days Will increase Lantus to 33 units and mealtime insulin to 10 units to help blood sugar control. WBC with little decrease from yesterday. Patient with concerns how his foot wound is doing. Will continue with hospitalization and wound care. 05/04/18 WBC improved to 9.3 but persistent erythema noted to top of foot. Will change cefepime to clindamycin 600mg IV q6 hours and continue vancomycin. Discussed with ortho and foot wound its self is doing well. Encourage continued elevation at rest and use of post op shoe when up and ambulatory. Sugars with elevation - increase Lantus to 38 units.
[2018-05-04] MEDS: CLINDAMYCIN PB 600 MG/50 ML BAG IV SCH ×2 (18:41→23:27)
[2018-05-04] MEDS: INSULIN GLARGINE 100unit/ml INJECTION SQ SCH (20:58)
[2018-05-05] MEDS: CLINDAMYCIN PB 600 MG/50 ML BAG IV SCH ×4 (05:54→23:40)
[2018-05-05] MEDS: NS FLUSH BAG 500ml IV PRN (05:55)
[2018-05-05] MEDS: INSULIN ASPART 100unit/ml INJECTION SQ PRN ×4 (06:23→21:15)
[2018-05-05] MEDS: LISINOPRIL 5 MG TABLET PO SCH (08:42)
[2018-05-05] MEDS: INSULIN ASPART 100unit/ml INJECTION SQ SCH ×4 (09:21→18:07)
--- NOTE | 2018-05-05 13:41 | Progress Note ---
- Date 05/05/18 Subjective: F/U: Sepsis secondary to cellulitis of the left foot, Cellulitis left foot, Diabetic foot ulceration. Doing fair. Frustrated about foot healing. Ortho explored wound today and did find area of abscess - drained and culture. Patient worries about wound care due to prior problems he has had with wound care her. Noted increased pain secondary to drainage, but tolerable. Eating well. Stools stable. Breathing well. Objective Vital signs: Temperature 97 F 05/05/18 07:19 Pulse Rate 78 05/05/18 07:19 Respiratory Rate 12 05/05/18 07:19 Blood Pressure 159/91 H 05/05/18 07:19 Pulse Oximetry 97 05/05/18 07:19 Height/Weight/BMI: Height 1.73 m Weight 123.5 kg Body Mass Index 41.4 - Constitutional Present: well nourished, well developed, average body habitus, morbidly obese, cooperative - Routine HEENT Exam Head: Present: normocephalic, atraumatic Eye: Present: EOMI, PERRL ENT: Present: mucous membranes moist - Routine Respiratory Exam Present: CTA bilaterally. Absent: respiratory distress - Routine Cardiovascular Exam Present: RRR, no murmur - Routine Abdominal Exam Present: soft, non distended, non tender - Routine Extremities Exam Present: edema (+1 LLE ). Absent: cyanosis, clubbing - Routine Musculoskeletal Exam Musculoskeletal: Present: no clubbing or cyanosis, normal strength - Routine Neurological Exam Present: alert, oriented X3, CN II-XII intact, moving all extremities, vision grossly intact, hearing grossly intact, normal speech. Absent: motor deficit, altered mental status - Routine Psychiatric Exam Present: normal affect, normal thought process, cooperative Results - Labs CBC & Chem 7: 05/05/18 04:50 05/05/18 04:50 Microbiology Results: Microbiology 05/05/18 12:17 Decubitus, Foot Left Deep Wound Culture - Preliminary Culture Initiated - Results Pending 04/30/18 11:41 Peripheral/Iv Start Blood Culture - Final No Growth After 5 Days 04/30/18 11:40 Peripheral/Iv Start Blood Culture - Final No Growth After 5 Days Assessment and Plan Assessment and Plan: Assessment: Sepsis secondary to cellulitis of the left foot as indicated by tachycardia, tachypnea, leukocytosis. Cellulitis left foot. Diabetic foot decubitus ulceration MRI without evidence of osteomyelitis Diabetes mellitus, type II, uncontrolled with acute hyperglycemia - A1c 12.4 Anemia, mild, (POA) - Hgb 13.2 Hyponatremia (POA) - Na 131 Hypomagnesium (POA) - Mg 1.5 Hypertension, uncontrolled. Medication noncompliance Peripheral neuropathy Morbid Obesity - BMI 41.5 Sleep apnea with home CPAP Plan Area of abscess found in wound of left foot - culture taken, open and packed. Continue with clindamycin and vancomycin for coverage - check on wound culture. Wound care as per ortho and wound team. Fasting sugar decreasing. Post meal time sugars with elevation. Increase mealtime insulin to 12 units. Recheck CBC, and BMP in am due to resolving sepsis/cellulitis and medication use. Case discussed with ortho. DVT Prophylaxis: SCD's Resuscitation Status: Full Code - Time spent with patient Time with patient PN: 25 minutes - Physician Narrative Physician: Baljeet Mauricio MD Narrative: Date: 05/05/18 Time: 1338 Hospital Course Summary Disclaimer: The visit summary below is not to be considered part of the above Progress Note. Hospital Course: 04/30/18 Admit patient to inpatient status under the care of Dr. Amaya and the hospitalist service. Patient given Clindamycin 600mg IV x 1 dose in ED. Unfortunately blood cultures were not obtained prior to giving the antibiotics. Monitor blood culture results. Will initiate Vancomycin per pharmacy as well as cefepime 2g IV Q12 hours for empiric coverage of suspected pathogens. Obtain MRI left foot in AM to assess for osteomyelitis. CRP elevated at 147.[address] Leyva, ortho, for further evaluation and wound care recommendations. Initial lactate was 1.1. Will monitor serial lactates. Procalcitonin 0.08. Patient given NS x 2L in ED prior to admission due to hyperglycemia with slight improvement in blood sugars. Will continue NS 100cc/hr for hydration and electrolyte correction. Hyponatremia noted on admission (Na 131). Will recheck CMP at 1600 to monitor electrolytes and rate of correction. Patient admits to being noncompliant with medications. Last known medication list per [facility] was: * Lisinopril 5mg PO daily. * Humalog 12 units WM. * Levemir 54 units QHS * Metformin 1000mg po BID. Initiate lisinopril 5mg daily now. Monitor blood pressure closely as well as renal function. Initiate Humalog 8 units with meals and Levemir 30 units QHS. Monitor blood sugars closely. SSI available as indicated. Consider restarting metformin if tolerating insulin and blood sugars remain elevated. Monitor closely on telemetry. Monitor closely for signs of hypoglycemia and hypotension given initiation of medications. Diabetic diet at 2000 kcal and will consult hospice educator. Recheck labs in AM to monitor blood counts, electrolytes and renal function. Upon discharge, patient will need to establish care with a primary provider. Importance of medication compliance was discussed at length with the patient 05/01/18 WBC with decrease to 14.9. Low grade temp to 99.9. Continue cefepime and vancomycin for antimicrobial coverage. Wound debridement preformed today by Dr Leyva. MRI without evidence of osteomyelitis. Can discontinue IVF as oral drive doing well. Continue with Levemir and Humalog for glycemic control - monitor sugars. 05/02/18 Continue cefepime and vancomycin for antimicrobial coverage. Dressing changed today with debridement. Will require dressing change every 3 days Plan to follow in the outpatient wound center at time of discharge Continue to work on blood sugar management with Humalog and Levemir Leukocytosis improving- 11.7 He is planning to establish PCP with Dr Badillo at time of discharge 05/03/18 Continue cefepime and vancomycin for antimicrobial coverage. Dressing changed today. Will require dressing change every 3 days Will increase Lantus to 33 units and mealtime insulin to 10 units to help blood sugar control. WBC with little decrease from yesterday. Patient with concerns how his foot wound is doing. Will continue with hospitalization and wound care. 05/04/18 WBC improved to 9.3 but persistent erythema noted to top of foot. Will change cefepime to clindamycin 600mg IV q6 hours and continue vancomycin. Discussed with ortho and foot wound its self is doing well. Encourage continued elevation at rest and use of post op shoe when up and ambulatory. Sugars with elevation - increase Lantus to 38 units. 05/05/18 Area of abscess found in wound of left foot - culture taken, open and packed. Continue with clindamycin and vancomycin for coverage - check on wound culture. Wound care as per ortho and wound team. Fasting sugar decreasing. Post meal time sugars with elevation. Increase mealtime insulin to 12 units.
--- NOTE | 2018-05-05 19:50 | Procedure Note ---
DATE OF SURGERY 05/05/2018 PREPROCEDURE DIAGNOSIS Left foot diabetic foot ulcer. PROCEDURE Sharp debridement, left diabetic foot ulcer with drainage of abscess. ANESTHESIA None. COMPLICATIONS None. BRIEF HISTORY Mr. Dawkins is a 52-year-old male who has been here at [facility] for the last several days. We have been treating him for a left diabetic foot ulcer. MRI was obtained which did not show signs of abscess. Unfortunately his swelling and redness on the dorsum of the foot have not improved. Also, the ulcer itself has become more necrotic over the last two days. For this reason I recommended sharp debridement here at the bedside. He agreed with this plan. DESCRIPTION OF PROCEDURE The wound measured approximately 1 cm x 2 cm starting between the fourth and fifth web space. There was 100% necrotic subcutaneous tissue within the wound. I started by sharply debriding this with a 15-blade. He tolerated this well given his neuropathy. I debrided this back to good bleeding subcutaneous tissue , removing all necrotic tissue. Within the web space itself along the lateral border of the fourth toe there was a small opening with necrotic subcutaneous tissue. I debrided this as well with a curette. When I did this I did encounter an abscess dorsal to the fifth toe. I took a culture of this and sent it to Micro. I continued to proceed to debride this area. It tunneled approximately 1.5 cm dorsally. I was able to milk down from the dorsal aspect of the foot to the wound and I was able to get a decent amount of pustulous-appearing material out. Necrotic tissue was debrided sharply. I then packed the wound with gauze and covered it with Kerlix. He tolerated this well. There were no complications. [facility]
[2018-05-05] MEDS: INSULIN GLARGINE 100unit/ml INJECTION SQ SCH (21:14)
[2018-05-05] MEDS: SALINE FLUSH 10ml SYRINGE IVF PRN (21:15)
[2018-05-06] MEDS: CLINDAMYCIN PB 600 MG/50 ML BAG IV SCH ×3 (05:48→17:44)
[2018-05-06] MEDS: SALINE FLUSH 10ml SYRINGE IVF PRN (05:49)
[2018-05-06] MEDS: INSULIN ASPART 100unit/ml INJECTION SQ PRN ×4 (06:18→21:34)
[2018-05-06] MEDS: INSULIN ASPART 100unit/ml INJECTION SQ SCH ×3 (09:24→17:44)
[2018-05-06] MEDS: LISINOPRIL 5 MG TABLET PO SCH (09:25)
--- NOTE | 2018-05-06 10:06 | Orthopedic Progress Note ---
Date: Date: 05/06/18 Time: 1003 Subjective/Severity of Illness: Phil is lying in bed this morning during rounds. Reports his left foot feels better today after abscess drained yesterday. Decreased pain and erythema. Deep wound gm stain- gm pos cocci, prelim culture shows heavy growth of staph aureus. Exam - Constitutional Vital Signs: Temperature 96.6 F L 05/06/18 07:37 Pulse Rate 75 05/06/18 07:37 Respiratory Rate 16 05/06/18 07:37 Blood Pressure 144/87 H 05/06/18 07:37 Pulse Oximetry 95 05/06/18 07:37 General: no acute distress, well developed, well groomed Nutritional Appearance: well nourished Orientation: alert, oriented x3 - LLE General: edema (left foot) Skin: erythema (mild dorsal aspect over 4-5th metatarsal area) Vascular: dorsalis pedis pulse within normal limits - Respiratory Respiratory Exam: non-labored - Cardiac Cardiovascular exam: pedal pulses intact - Wound L PLANTAR FOOT BETWEEN FOURTH AND FIFTH TOES Type of Wound/Ulcer: Diabetic Ulcer Wound Dressing: Other (silver rope in abcess and hydrofera blue on plantar wound ) Wound Drainage Amount: Moderate Wound Drainage Description: Purulent (from abscess opening) Wound Drainage Odor: No Odor Wound Size: > than 1 squre cm Wound Bed Appearance: Beefy Red, Granulation - Labs Result Diagrams: 05/06/18 08:58 05/06/18 08:58 Abnormal lab results 05/06/18 05/06/18 Range/Units 08:58 08:58 RBC 4.42 L (4.50-5.90) M/MM3 Hgb 12.0 L (13.5-17.5) GM/DL Hct 35.9 L (41-53) % MPV 8.9 L (9.4-12.4) UM3 Immature Gran % (Auto) 0.8 H (0.0-0.5) % Abs Immat Gran (auto) 0.08 H (0.00-0.03) T/MM3 Creatinine 0.7 L (0.8-1.5) mg/dL Glucose 156 H (75-110) MG/DL H & H 05/01/18 05/02/18 05/03/18 Range/Units 04:32 04:13 08:04 Hgb 12.6 L 12.3 L 12.5 L (13.5-17.5) GM/DL Hct 36.2 L 36.9 L 37.9 L (41-53) % 05/04/18 05/05/18 05/06/18 Range/Units 04:44 04:50 08:58 Hgb 12.5 L 12.1 L 12.0 L (13.5-17.5) GM/DL Hct 37.2 L 36.1 L 35.9 L (41-53) % Orthopedic Assessment and Plan (1) Ulcer of left foot due to type 2 diabetes mellitus Status: Acute Assessment and Plan: Silver rope packing to abscess between 4th and 5th toes change BID. Bleeding controlled today and restarted hydrofera blue to plantar wound. WBAT in post-op shoe Medical management per hospitalist. Wound gm stain- gm pos cocci, Wound culture prelim staph aureus- Patient has been on Clindamycin and vanco for cellulitis Hospital Course Summary Disclaimer: The visit summary below is not to be considered part of the above Progress Note. Hospital Course: 04/30/18 Admit patient to inpatient status under the care of Dr. Amaya and the hospitalist service. Patient given Clindamycin 600mg IV x 1 dose in ED. Unfortunately blood cultures were not obtained prior to giving the antibiotics. Monitor blood culture results. Will initiate Vancomycin per pharmacy as well as cefepime 2g IV Q12 hours for empiric coverage of suspected pathogens. Obtain MRI left foot in AM to assess for osteomyelitis. CRP elevated at 147.[address] Leyva, [facility], for further evaluation and wound care recommendations. Initial lactate was 1.1. Will monitor serial lactates. Procalcitonin 0.08. Patient given NS x 2L in ED prior to admission due to hyperglycemia with slight improvement in blood sugars. Will continue NS 100cc/hr for hydration and electrolyte correction. Hyponatremia noted on admission (Na 131). Will recheck CMP at 1600 to monitor electrolytes and rate of correction. Patient admits to being noncompliant with medications. Last known medication list per [facility] was: * Lisinopril 5mg PO daily. * Humalog 12 units WM. * Levemir 54 units QHS * Metformin 1000mg po BID. Initiate lisinopril 5mg daily now. Monitor blood pressure closely as well as renal function. Initiate Humalog 8 units with meals and Levemir 30 units QHS. Monitor blood sugars closely. SSI available as indicated. Consider restarting metformin if tolerating insulin and blood sugars remain elevated. Monitor closely on telemetry. Monitor closely for signs of hypoglycemia and hypotension given initiation of medications. Diabetic diet at 2000 kcal and will consult clinical educator. Recheck labs in AM to monitor blood counts, electrolytes and renal function. Upon discharge, patient will need to establish care with a primary provider. Importance of medication compliance was discussed at length with the patient 05/01/18 WBC with decrease to 14.9. Low grade temp to 99.9. Continue cefepime and vancomycin for antimicrobial coverage. Wound debridement preformed today by Dr Leyva. MRI without evidence of osteomyelitis. Can discontinue IVF as oral drive doing well. Continue with Levemir and Humalog for glycemic control - monitor sugars. 05/02/18 Continue cefepime and vancomycin for antimicrobial coverage. Dressing changed today with debridement. Will require dressing change every 3 days Plan to follow in the outpatient wound center at time of discharge Continue to work on blood sugar management with Humalog and Levemir Leukocytosis improving- 11.7 He is planning to establish PCP with Dr Badillo at time of discharge 05/03/18 Continue cefepime and vancomycin for antimicrobial coverage. Dressing changed today. Will require dressing change every 3 days Will increase Lantus to 33 units and mealtime insulin to 10 units to help blood sugar control. WBC with little decrease from yesterday. Patient with concerns how his foot wound is doing. Will continue with hospitalization and wound care. 05/04/18 WBC improved to 9.3 but persistent erythema noted to top of foot. Will change cefepime to clindamycin 600mg IV q6 hours and continue vancomycin. Discussed with ortho and foot wound its self is doing well. Encourage continued elevation at rest and use of post op shoe when up and ambulatory. Sugars with elevation - increase Lantus to 38 units. 05/05/18 Area of abscess found in wound of left foot - culture taken, open and packed. Continue with clindamycin and vancomycin for coverage - check on wound culture. Wound care as per ortho and wound team. Fasting sugar decreasing. Post meal time sugars with elevation. Increase mealtime insulin to 12 units.
[2018-05-06] MEDS: NS FLUSH BAG 500ml IV PRN (10:39)
--- NOTE | 2018-05-06 13:44 | Pharmacy Consult-Antibiotics ---
Pharmacy Consult-Vancomycin - Laboratory Information WBC 9.5 T/MM3 (4.5-11.0) 05/06/18 08:58 BUN 13.0 MG/DL (9-20) 05/06/18 08:58 Creatinine 0.7 mg/dL (0.8-1.5) L 05/06/18 08:58 Procalcitonin 0.08 NG/ML 04/30/18 11:41 Vancomycin Trough 16.92 ug/mL (15-20) 05/06/18 08:58 - Consult Information VANCOMYCIN CONSULT: day 7 goal trough range= 15 to 20 mcg/ml Vancomycin Trough =16.92 mcg/ml. No change to Vancomycin dose. Will continue to monitor and make adjustments accordingly. Thank you, Joie Chester RP
--- NOTE | 2018-05-06 13:58 | Progress Note ---
- Date 05/06/18 Subjective: No new issues. Sitting in chair. Patient notes his prior frustrations but is in good spirits today. Objective Vital signs: Temperature 96.6 F L 05/06/18 07:37 Pulse Rate 75 05/06/18 07:37 Respiratory Rate 16 05/06/18 07:37 Blood Pressure 144/87 H 05/06/18 07:37 Pulse Oximetry 95 05/06/18 07:37 Height/Weight/BMI: Height 5 ft 8 in Weight 125.7 kg Body Mass Index 41.4 - Constitutional Present: no acute distress - Routine Respiratory Exam Present: CTA bilaterally - Routine Cardiovascular Exam Present: RRR - Routine Abdominal Exam Present: soft, non distended, non tender - Routine Extremities Exam Present: no edema - Routine Skin Exam Comments: ulceration to left foot in clean and dry dressing with surgical shoe. - Routine Neurological Exam Present: alert, oriented X3, CN II-XII intact Results - Labs CBC & Chem 7: 05/06/18 08:58 05/06/18 08:58 Microbiology Results: Microbiology 05/05/18 12:17 Decubitus, Foot Left Gram Stain - Final 05/05/18 12:17 Decubitus, Foot Left Deep Wound Culture - Preliminary Staphylococcus aureus 04/30/18 11:41 Peripheral/Iv Start Blood Culture - Final No Growth After 5 Days 04/30/18 11:40 Peripheral/Iv Start Blood Culture - Final No Growth After 5 Days Assessment and Plan Assessment and Plan: Assessment: Sepsis secondary to cellulitis of the left foot as indicated by tachycardia, tachypnea, leukocytosis. Cellulitis left foot. Diabetic foot decubitus ulceration MRI without evidence of osteomyelitis Diabetes mellitus, type II, uncontrolled with acute hyperglycemia - A1c 12.4 Anemia, mild, (POA) - Hgb 13.2 Hyponatremia (POA) - Na 131 Hypomagnesium (POA) - Mg 1.5 Hypertension, uncontrolled. Medication noncompliance Peripheral neuropathy Morbid Obesity - BMI 41.5 Sleep apnea with home CPAP Plan Area of abscess found in wound of left foot - culture taken, open and packed 05/05 Continue with clindamycin and vancomycin for coverage - wound culture with s aureus - susceptibilities pending Wound care as per ortho and wound team. sugars improved with Increased mealtime insulin to 12 units. Continue to titrate. Recheck CBC, and BMP in am due to resolving sepsis/cellulitis and medication use. - Physician Narrative Narrative: Date: 05/06/18 Time: 1355 Hospital Course Summary Disclaimer: The visit summary below is not to be considered part of the above Progress Note. Hospital Course: 04/30/18 Admit patient to inpatient status under the care of Dr. Amaya and the hospitalist service. Patient given Clindamycin 600mg IV x 1 dose in ED. Unfortunately blood cultures were not obtained prior to giving the antibiotics. Monitor blood culture results. Will initiate Vancomycin per pharmacy as well as cefepime 2g IV Q12 hours for empiric coverage of suspected pathogens. Obtain MRI left foot in AM to assess for osteomyelitis. CRP elevated at 147.[address] Leyva, ortho, for further evaluation and wound care recommendations. Initial lactate was 1.1. Will monitor serial lactates. Procalcitonin 0.08. Patient given NS x 2L in ED prior to admission due to hyperglycemia with slight improvement in blood sugars. Will continue NS 100cc/hr for hydration and electrolyte correction. Hyponatremia noted on admission (Na 131). Will recheck CMP at 1600 to monitor electrolytes and rate of correction. Patient admits to being noncompliant with medications. Last known medication list per [facility] was: * Lisinopril 5mg PO daily. * Humalog 12 units WM. * Levemir 54 units QHS * Metformin 1000mg po BID. Initiate lisinopril 5mg daily now. Monitor blood pressure closely as well as renal function. Initiate Humalog 8 units with meals and Levemir 30 units QHS. Monitor blood sugars closely. SSI available as indicated. Consider restarting metformin if tolerating insulin and blood sugars remain elevated. Monitor closely on telemetry. Monitor closely for signs of hypoglycemia and hypotension given initiation of medications. Diabetic diet at 2000 kcal and will consult clinical trial educator. Recheck labs in AM to monitor blood counts, electrolytes and renal function. Upon discharge, patient will need to establish care with a primary provider. Importance of medication compliance was discussed at length with the patient 05/01/18 WBC with decrease to 14.9. Low grade temp to 99.9. Continue cefepime and vancomycin for antimicrobial coverage. Wound debridement preformed today by Dr Leyva. MRI without evidence of osteomyelitis. Can discontinue IVF as oral drive doing well. Continue with Levemir and Humalog for glycemic control - monitor sugars. 7/3/18 Continue cefepime and vancomycin for antimicrobial coverage. Dressing changed today with debridement. Will require dressing change every 3 days Plan to follow in the outpatient wound center at time of discharge Continue to work on blood sugar management with Humalog and Levemir Leukocytosis improving- 11.7 He is planning to establish PCP with Dr Badillo at time of discharge 05/03/18 Continue cefepime and vancomycin for antimicrobial coverage. Dressing changed today. Will require dressing change every 3 days Will increase Lantus to 33 units and mealtime insulin to 10 units to help blood sugar control. WBC with little decrease from yesterday. Patient with concerns how his foot wound is doing. Will continue with hospitalization and wound care. 05/04/18 WBC improved to 9.3 but persistent erythema noted to top of foot. Will change cefepime to clindamycin 600mg IV q6 hours and continue vancomycin. Discussed with ortho and foot wound its self is doing well. Encourage continued elevation at rest and use of post op shoe when up and ambulatory. Sugars with elevation - increase Lantus to 38 units. 05/05/18 Area of abscess found in wound of left foot - culture taken, open and packed. Continue with clindamycin and vancomycin for coverage - check on wound culture. Wound care as per ortho and wound team. Fasting sugar decreasing. Post meal time sugars with elevation. Increase mealtime insulin to 12 units. 05/06/18 Area of abscess found in wound of left foot - culture taken, open and packed 05/05 Continue with clindamycin and vancomycin for coverage - wound culture with s aureus - susceptibilities pending Wound care as per ortho and wound team. sugars improved with Increased mealtime insulin to 12 units. Continue to titrate. Recheck CBC, and BMP in am due to resolving sepsis/cellulitis and medication use.
[2018-05-06] MEDS ORDERED: INSULIN ASPART 100unit/ml INJECTION SQ SCH (17:53)
[2018-05-06] MEDS ORDERED: INSULIN GLARGINE 100unit/ml INJECTION SQ SCH (17:53)
[2018-05-07] MEDS: CLINDAMYCIN PB 600 MG/50 ML BAG IV SCH ×3 (00:10→11:30)
[2018-05-07 02:54] VITALS: RESP 16
[2018-05-07 07:52] VITALS: BP 144/82; PULSE 73; TEMP 96.1; O2SAT 95
[2018-05-07] MEDS: LISINOPRIL 5 MG TABLET PO SCH (08:57)
[2018-05-07] MEDS: SALINE FLUSH 10ml SYRINGE IVF PRN (08:57)
--- NOTE | 2018-05-07 10:44 | Orthopedic Progress Note ---
Date: Date: 05/07/18 Time: 1040 Subjective/Severity of Illness: Phil is lying in bed during rounds this morning. Denies any pain with left foot. Has been wearing post op shoe with ambulation. Denies any new concerns. Exam - Constitutional Vital Signs: Temperature 96.1 F L 05/07/18 07:50 Pulse Rate 73 05/07/18 07:50 Respiratory Rate 16 05/07/18 07:50 Blood Pressure 144/82 H 05/07/18 07:50 Pulse Oximetry 95 05/07/18 07:50 General: no acute distress, well developed, well groomed Nutritional Appearance: well nourished Orientation: alert, oriented x3 - LLE Postoperative Appearance: extremity compartments are soft and nontender (mild erythema, has signficantly improved over the last two days) Skin: erythema (mild erythema, has signficiantly improved over the past two days ) Neurological: decreased sensation to light touch Vascular: dorsalis pedis pulse within normal limits - Respiratory Respiratory Exam: non-labored - Cardiac Cardiovascular exam: pedal pulses intact - Wound L PLANTAR FOOT BETWEEN FOURTH AND FIFTH TOES Type of Wound/Ulcer: Diabetic Ulcer Wound Dressing: Other (silver rope in abcess and hydrofera blue on plantar wound ) Wound Drainage Amount: Small Wound Drainage Description: Serous Wound Drainage Odor: No Odor Wound Size: > than 1 squre cm Wound Bed Appearance: Beefy Red, Slough (debride with sharp currette), Granulation - Labs Result Diagrams: 05/07/18 04:03 05/07/18 04:03 Abnormal lab results 05/07/18 05/07/18 Range/Units 04:03 04:03 RBC 4.18 L (4.50-5.90) M/MM3 Hgb 11.9 L (13.5-17.5) GM/DL Hct 34.4 L (41-53) % MPV 9.1 L (9.4-12.4) UM3 Immature Gran % (Auto) 0.9 H (0.0-0.5) % Abs Immat Gran (auto) 0.09 H (0.00-0.03) T/MM3 Glucose 130 H (75-110) MG/DL H & H 05/01/18 05/02/18 05/03/18 Range/Units 04:32 04:13 08:04 Hgb 12.6 L 12.3 L 12.5 L (13.5-17.5) GM/DL Hct 36.2 L 36.9 L 37.9 L (41-53) % 05/04/18 05/05/18 05/06/18 Range/Units 04:44 04:50 08:58 Hgb 12.5 L 12.1 L 12.0 L (13.5-17.5) GM/DL Hct 37.2 L 36.1 L 35.9 L (41-53) % 05/07/18 Range/Units 04:03 Hgb 11.9 L (13.5-17.5) GM/DL Hct 34.4 L (41-53) % Orthopedic Assessment and Plan (1) Ulcer of left foot due to type 2 diabetes mellitus Status: Acute Assessment and Plan: Silver rope packing to abscess between 4th and 5th toes change BID, hydrofera blue to plantar wound WBAT in post-op shoe Wound culture staph aureus- hospitalist managing antibiotic regimen. Follow up in wound clinic outpatient. Hospital Course Summary Disclaimer: The visit summary below is not to be considered part of the above Progress Note. Hospital Course: 04/30/18 Admit patient to inpatient status under the care of Dr. Amaya and the hospitalist service. Patient given Clindamycin 600mg IV x 1 dose in ED. Unfortunately blood cultures were not obtained prior to giving the antibiotics. Monitor blood culture results. Will initiate Vancomycin per pharmacy as well as cefepime 2g IV Q12 hours for empiric coverage of suspected pathogens. Obtain MRI left foot in AM to assess for osteomyelitis. CRP elevated at 147.[address] Leyva, [facility], for further evaluation and wound care recommendations. Initial lactate was 1.1. Will monitor serial lactates. Procalcitonin 0.08. Patient given NS x 2L in ED prior to admission due to hyperglycemia with slight improvement in blood sugars. Will continue NS 100cc/hr for hydration and electrolyte correction. Hyponatremia noted on admission (Na 131). Will recheck CMP at 1600 to monitor electrolytes and rate of correction. Patient admits to being noncompliant with medications. Last known medication list per [facility] was: * Lisinopril 5mg PO daily. * Humalog 12 units WM. * Levemir 54 units QHS * Metformin 1000mg po BID. Initiate lisinopril 5mg daily now. Monitor blood pressure closely as well as renal function. Initiate Humalog 8 units with meals and Levemir 30 units QHS. Monitor blood sugars closely. SSI available as indicated. Consider restarting metformin if tolerating insulin and blood sugars remain elevated. Monitor closely on telemetry. Monitor closely for signs of hypoglycemia and hypotension given initiation of medications. Diabetic diet at 2000 kcal and will consult life educator. Recheck labs in AM to monitor blood counts, electrolytes and renal function. Upon discharge, patient will need to establish care with a primary provider. Importance of medication compliance was discussed at length with the patient 05/01/18 WBC with decrease to 14.9. Low grade temp to 99.9. Continue cefepime and vancomycin for antimicrobial coverage. Wound debridement preformed today by Dr Leyva. MRI without evidence of osteomyelitis. Can discontinue IVF as oral drive doing well. Continue with Levemir and Humalog for glycemic control - monitor sugars. 05/02/18 Continue cefepime and vancomycin for antimicrobial coverage. Dressing changed today with debridement. Will require dressing change every 3 days Plan to follow in the outpatient wound center at time of discharge Continue to work on blood sugar management with Humalog and Levemir Leukocytosis improving- 11.7 He is planning to establish PCP with Dr Badillo at time of discharge 05/03/18 Continue cefepime and vancomycin for antimicrobial coverage. Dressing changed today. Will require dressing change every 3 days Will increase Lantus to 33 units and mealtime insulin to 10 units to help blood sugar control. WBC with little decrease from yesterday. Patient with concerns how his foot wound is doing. Will continue with hospitalization and wound care. 05/04/18 WBC improved to 9.3 but persistent erythema noted to top of foot. Will change cefepime to clindamycin 600mg IV q6 hours and continue vancomycin. Discussed with ortho and foot wound its self is doing well. Encourage continued elevation at rest and use of post op shoe when up and ambulatory. Sugars with elevation - increase Lantus to 38 units. 05/05/18 Area of abscess found in wound of left foot - culture taken, open and packed. Continue with clindamycin and vancomycin for coverage - check on wound culture. Wound care as per ortho and wound team. Fasting sugar decreasing. Post meal time sugars with elevation. Increase mealtime insulin to 12 units. 05/06/18 Area of abscess found in wound of left foot - culture taken, open and packed 05/05 Continue with clindamycin and vancomycin for coverage - wound culture with s aureus - susceptibilities pending Wound care as per ortho and wound team. sugars improved with Increased mealtime insulin to 12 units. Continue to titrate. Recheck CBC, and BMP in am due to resolving sepsis/cellulitis and medication use.
--- NOTE | 2018-05-07 11:05 | Discharge Summary ---
Discharge Information Date of admission: 04/30/18 11:23 Anticipated date of discharge: 05/07/18 Attending Physician: Phoebe Carlos DO Primary care physician: Dinh Badillo MD Consults: 04/30/18 12:49 Case Management Consult [CONS] Routine Reason For Exam: 05/01/18 07:30 Physician Consult [CONS] Routine Consulting Provider: Jaylon Leyva Reason For Exam: diabetic foot ulceration Ordering Provider has Notified Powder Line Repairer: Yes 05/01/18 08:00 Dude Ranch Manager Consult [Inpatient Diabetic Consult] [CONS] Routine Diabetic Diagnosis: E11.65 Uncontrolled T2 DM Diabetic Training: Carb Counting Detect Complications Nutritional Management Monitoring Diabetes Disease Process Sepsis secondary to cellulitis of the left foot Cellulitis left foot. Diabetic foot decubitus ulceration Diabetes mellitus, type II, uncontrolled with acute hyperglycemia - A1c 12.4 Anemia, mild, (POA) - Hgb 13.2 Hypertension, uncontrolled. Medication noncompliance Peripheral neuropathy Morbid Obesity - BMI 41.5 Sleep apnea with home CPAP - Laboratory Labs: 05/07/18 04:03 05/07/18 04:03 - Microbiology Microbiology 05/05/18 12:17 Decubitus, Foot Left Gram Stain - Final 05/05/18 12:17 Decubitus, Foot Left Deep Wound Culture - Preliminary Staphylococcus aureus 04/30/18 11:41 Peripheral/Iv Start Blood Culture - Final No Growth After 5 Days 04/30/18 11:40 Peripheral/Iv Start Blood Culture - Final No Growth After 5 Days History of Present Illness HPI: Phil Dawkins is a 52-year-old male who presented to [facility] today, 04/30/18, for evaluation of swelling and erythema to his left foot. He has a known history of uncontrolled diabetes type II, peripheral diabetic neuropathy and uncontrolled hypertension as he has not taken his medications since 2016. He has previously been seen and treated by Dr. Narinder Gamble but does not currently have a primary physician. He reports that on 04/24/18 he began having itching and burning to the bottom of his left foot and felt that it was due to dry skin so he lathered his feet with lotion and put on clean socks. On 04/25/18 he began noticing increased swelling with very mild erythema to his left foot along the lateral aspect and between his 4th and 5th toes. At that time, he also noticed some skin that appeared to be sloughing off so he pulled it off and noticed the underlying skin was more yellow than pink like normal. He denies any discharge or bleeding at that time. Over the next few days, the swelling and erythema progressively got worse despite constant elevation at home. He also had subjective fevers with profuse sweating. This morning he reports that he began to "panic" that something was wrong and presented to [facility]. Upon arrival to the ED, he was noted to be afebrile with tachycardia (HR 106), tachypnea (RR 22) and elevated blood pressure (177/86). Labs were obtained and revealed leukocytosis (WBC 16.8) with 2% bands, mild anemia (Hgb 13.2), hyponatremia (Na 131) and hyperglycemia (Glu 380). CRP was elevated at 147.2. Lactate was 1.1 and procalcitonin was 0.08. A1c was elevated at 12.4. Left foot x-ray was obtained and revealed no acute osseous abnormalities. CT foot was also obtained in ED and revealed 1st digit soft-tissue swelling, no foreign body identified and no acute bony injury noted. Based on clinical exam in conjunction with his uncontrolled diabetes and hypertension as well as concern for sepsis as indicated by his leukocytosis, tachycardia and tachypnea with concerns of osteomyelitis, Dr. Amaya was consulted and Phil was admitted into inpatient status for further evaluation, correction of his uncontrolled diabetes, wound and orthopedic evaluation and IV antibiotics. His length of stay is expected to exceed more than 2 over nights. Objective Vital signs: Temperature 96.1 F L 05/07/18 07:50 Pulse Rate 73 05/07/18 07:50 Respiratory Rate 16 05/07/18 07:50 Blood Pressure 144/82 H 05/07/18 07:50 Pulse Oximetry 95 05/07/18 07:50 Height/Weight/BMI: Height 5 ft 8 in Weight 127 kg Body Mass Index 41.4 - Constitutional Present: no acute distress - Routine Respiratory Exam Present: CTA bilaterally - Routine Cardiovascular Exam Present: RRR - Routine Abdominal Exam Present: soft, non distended, non tender - Routine Extremities Exam Present: no edema, pulses intact - Routine Skin Exam Comments: Left foot ulcer without drainage or surrounding erythema on plantar base of 4th/ 5th metatarsal and in between 4th and 5th toes. No sign of fluid collection. - Routine Neurological Exam Present: alert, oriented X3, CN II-XII intact Hospital Course This is a general summary of the patient's hospital course. For more details refer to the complete medical record. Hospital course: 04/30/18 Admit patient to inpatient status under the care of Dr. Amaya and the hospitalist service. Patient given Clindamycin 600mg IV x 1 dose in ED. Unfortunately blood cultures were not obtained prior to giving the antibiotics. Monitor blood culture results. Will initiate Vancomycin per pharmacy as well as cefepime 2g IV Q12 hours for empiric coverage of suspected pathogens. Obtain MRI left foot in AM to assess for osteomyelitis. CRP elevated at 147.[address] Leyva, anupama, for further evaluation and wound care recommendations. Initial lactate was 1.1. Will monitor serial lactates. Procalcitonin 0.08. Patient given NS x 2L in ED prior to admission due to hyperglycemia with slight improvement in blood sugars. Will continue NS 100cc/hr for hydration and electrolyte correction. Hyponatremia noted on admission (Na 131). Will recheck CMP at 1600 to monitor electrolytes and rate of correction. Patient admits to being noncompliant with medications. Last known medication list per [facility] was: * Lisinopril 5mg PO daily. * Humalog 12 units WM. * Levemir 54 units QHS * Metformin 1000mg po BID. Initiate lisinopril 5mg daily now. Monitor blood pressure closely as well as renal function. Initiate Humalog 8 units with meals and Levemir 30 units QHS. Monitor blood sugars closely. SSI available as indicated. Consider restarting metformin if tolerating insulin and blood sugars remain elevated. Monitor closely on telemetry. Monitor closely for signs of hypoglycemia and hypotension given initiation of medications. Diabetic diet at 2000 kcal and will consult nurses educator. Recheck labs in AM to monitor blood counts, electrolytes and renal function. Upon discharge, patient will need to establish care with a primary provider. Importance of medication compliance was discussed at length with the patient 05/01/18 WBC with decrease to 14.9. Low grade temp to 99.9. Continue cefepime and vancomycin for antimicrobial coverage. Wound debridement preformed today by Dr Leyva. MRI without evidence of osteomyelitis. Can discontinue IVF as oral drive doing well. Continue with Levemir and Humalog for glycemic control - monitor sugars. 05/02/18 Continue cefepime and vancomycin for antimicrobial coverage. Dressing changed today with debridement. Will require dressing change every 3 days Plan to follow in the outpatient wound center at time of discharge Continue to work on blood sugar management with Humalog and Levemir Leukocytosis improving- 11.7 He is planning to establish PCP with Dr Badillo at time of discharge 05/03/18 Continue cefepime and vancomycin for antimicrobial coverage. Dressing changed today. Will require dressing change every 3 days Will increase Lantus to 33 units and mealtime insulin to 10 units to help blood sugar control. WBC with little decrease from yesterday. Patient with concerns how his foot wound is doing. Will continue with hospitalization and wound care. 05/04/18 WBC improved to 9.3 but persistent erythema noted to top of foot. Will change cefepime to clindamycin 600mg IV q6 hours and continue vancomycin. Discussed with ortho and foot wound its self is doing well. Encourage continued elevation at rest and use of post op shoe when up and ambulatory. Sugars with elevation - increase Lantus to 38 units. 05/05/18 Area of abscess found in wound of left foot - culture taken, open and packed. Continue with clindamycin and vancomycin for coverage - check on wound culture. Wound care as per ortho and wound team. Fasting sugar decreasing. Post meal time sugars with elevation. Increase mealtime insulin to 12 units. 05/06/18 Area of abscess found in wound of left foot - culture taken, open and packed 05/05 Continue with clindamycin and vancomycin for coverage - wound culture with s aureus - susceptibilities pending Wound care as per ortho and wound team. sugars improved with Increased mealtime insulin to 12 units. Continue to titrate. Recheck CBC, and BMP in am due to resolving sepsis/cellulitis and medication use. 05/07/18 Wound culture resulted with BLAKE. Wound appears improved. Home on oral clindamycin. RN to teach patient daily wound care. F/U wound clinic and with Dr. Leyva arranged on Tuesday by Laura. PCP appointment made for Tuesday with Dr. Badillo. Encouraged to take insulin and blood pressure medications. Time spent with patient: 25 - 35 minutes Resuscitation Status: Full Code Discharge Plan - Discharge Disposition Discharge Date: 05/07/18 Disposition: 01 Discharged Home, Self-Care *Condition: Stable Reason For Visit (Visit label in EMR): sepsis, cellulitis, uncontrolled DM - Discharge Medications *Discharge Medications: New Lisinopril [Prinivil] 5 mg PO DAILY #30 tab Acetaminophen [Tylenol] 650 mg PO Q5H PRN tab PRN Reason: Discomfort Clindamycin [Cleocin] 300 mg PO QID 7 Days #28 cap Continue Aspirin [Adult Aspirin Regimen] 81 mg PO DAILY Insulin Lispro [Humalog] 15 unit SQ TIDWM #1 vial Metformin [Glucophage] 1 tab PO BIDWM #60 tab Cholecalciferol (Vitamin D3) [Vitamin D3] 1 tab PO DAILY Mucinex 400 mg Q4H PRN PRN Reason: Congestion Changed Insulin Detemir [Levemir] 42 unit SQ HS #1 vial - Discharge Packet/Instructions *Diet: Diabetic, 60g carbs per meal *Activity: Weight bearing as tolerated in post op shoe only left foot. *Pain Management/Treatment: tylenol as needed *Wound Care: Use qtip to pack silver rope in abscess wound between 4th and 5th toes- change daily. Hydrofera blue to plantar foot wound may change q3 days ( sooner if falls off). Cover with guaze and kerlex. Keep foot clean and dry. Do not get it wet. *Expected Signs/Symptoms: healing of wound *Notify Physician if: Increased pain or drainage of wound. Fever that is persistent. Low blood sugars. *During Business Hours Contact: Primary care doctor or Dr. Leyva *After Business Hours Contact: Emergency Room *Pending Lab/Results: No Pending Lab - Referrals/Follow Up *Referrals/Follow Up: Jaylon Leyva MD [Physician] - (Tuesday05/10/18 at 1100 at [facility] Wound clinic.) Dinh Badillo MD [Primary Care Provider] - (05/12/18 at 3:45pm) - Patient Handouts Patient Handouts: Cellulitis (GEN), Sepsis (GEN), Foot Care for People with Diabetes (GEN) - Dismissal Complete Discharge Instructions are:: Complete Physician Narrative - Narrative Attestation Narrative: Date: 05/07/18 Time: 1102
== END 2018-05-07 12:20 | disposition home or self-care (01) | DRG 854 ==
LOC: ED 09:28 → EDHOLD 11:23 → SUATTDRO 11:23 → MED 11:50
PROVIDERS: ADMIT Hospitalist; ATTEND Internal Medicine